=== PATIENT | female | born 1935 | race Caucasian/White ===

== ENCOUNTER 2016-11-16 21:32 | Inpatient (IN) | payer MEDICARE, OTHER ==
[2016-11-16] MEDS ORDERED: fentaNYL CITRATE INJ 50 MCG/ML AMP IV ONE (21:48)
--- NOTE | 2016-11-16 21:49 | ED.PDOC ---
History of Present Illness - General Chief Complaint: Trauma Stated Complaint: left hip pain Time Seen by Provider: 11/16/16 21:42 Source: patient Exam Limitations: no limitations - History of Present Illness Initial Comments: Fatemeh Solis 80 y/o female with hbp stated while she was placing her stuff out of her backpack she lost her balance and and fell on her left side then unable to get up but crawled and called up ems denies dizziness,head or neck injuries or chest pains.She stated that her left hip was hurting after the incident. Occurred: just prior to arrival Severity: severe Injuries/Pain Location: pelvis Reason for Fall: lost balance Loss of Consciousness: prolonged (minutes) Improving Factors: rest Worsening Factors: movement Associated Symptoms (Fall): denies symptoms Allergies/Adverse Reactions: Allergies NO KNOWN ALLERGY Allergy (Verified 01/17/16 19:30) Home Medications: Ambulatory Orders Atenolol [Tenormin] 100 mg PO DAILY 07/19/14 Simvastatin 20 mg PO BEDTIME 07/19/14 Omeprazole 40 mg PO DAILY 04/30/15 Oxybutynin 5 mg PO BID 04/30/15 Vitamin D 5,000 iu PO DAILY 04/30/15 Acetaminophen [Tylenol] 1,000 mg PO Q6H PRN #0 tab 05/08/15 Aspirin [Baby Aspirin] 81 mg PO DAILY 01/17/16 Citalopram Hydrobromide 10 mg PO BEDTIME 01/17/16 Melatonin 5 mg PO BEDTIME 01/17/16 Oxybutynin Chloride 5 mg PO DAILY 01/17/16 Potassium Gluconate 595 mg PO DAILY 01/17/16 amLODIPine BESYLATE [Norvasc] 5 mg PO BEDTIME 01/17/16 Bifidobacterium Infantis [Align] 4 mg PO DAILY #30 cap 01/18/16 Ondansetron [Zofran Odt] 4 mg PO Q6H PRN #12 tab 01/18/16 Potassium Chloride [K-Tab] 10 meq PO QAM #30 tab 01/18/16 levoFLOXacin [Levaquin] 500 mg PO QAM #8 tab 01/18/16 Review of Systems - Review of Systems Constitutional: States: no symptoms reported EENTM: States: no symptoms reported Respiratory: States: no symptoms reported Cardiology: States: no symptoms reported Gastrointestinal/Abdominal: States: no symptoms reported Genitourinary: States: no symptoms reported Musculoskeletal: States: joint pain - left hip Skin: States: no symptoms reported Neurological: States: no symptoms reported Endocrine: States: no symptoms reported Hematologic/Lymphatic: States: no symptoms reported Past Medical History (General) - Patient Medical History Hx Seizures: No Hx Stroke: No Hx Dementia: No Hx Asthma: No Hx of COPD: No Hx Cardiac Disorders: Yes Hx Congestive Heart Failure: No Hx Pacemaker: No Hx Hypertension: Yes Hx Thyroid Disease: No Hx Diabetes: No Hx Gastroesophageal Reflux: Yes Hx Renal Disease: No Hx Cancer: No Hx of HIV: No Hx Hepatitis C: No Hx MRSA: Yes - 2015 MRSA Surveillance MRSA Source:: nose Surgical History: appendectomy, cholecystectomy, tonsillectomy, other - knee, right hip - Vaccination History Hx Tetanus, Diphtheria Vaccination: No Hx Influenza Vaccination: Yes Hx Pneumococcal Vaccination: Yes - Social History Hx Tobacco Use: No Hx Chewing Tobacco Use: No Hx Alcohol Use: No Hx Substance Use: No Hx Substance Use Treatment: No Hx Depression: No Hx Physical Abuse: No Hx Emotional Abuse: No Hx Suspected Abuse: No - Activities of Daily Living Patient Lives Alone: No - Grooming Ability: Independent Eating (Feeding) Ability: Independent Toileting Ability: Independent - Female History Patient : No Physical Exam - Physical Exam General Appearance: Alert, No apparent distress, Other - in pain Head Injury: no evidence of injury Eye Exam: bilateral normal ENT Exam: hearing grossly normal, no evidence of ENT injury, no dental injury Peripheral Pulses: radial,right: 2+, radial,left: 2+, dorsalis pedis,right: 2+, dorsalis pedis,left: 2+ Cardiovascular/Respiratory: regular rate, rhythm, no M/R/G, normal peripheral pulses, no JVD, normal breath sounds Gastrointestinal/Abdominal: normal bowel sounds, non tender, soft, no organomegaly Extremity Exam: pelvis stable, bony-point tenderness - left hip, pain with movement - left hip Neurologic: no motor/sensory deficits, alert, oriented x 3 Skin Exam: normal color, warm/dry - Anny Coma Score Best Eye Response (Anny): (4) open spontaneously Best Verbal Response (Howard): (5) oriented Best Motor Response (Anny): (6) obeys commands Howard Total: 15 Progress - Results/Orders Results/Orders: 11/16/16 21:47 Sodium Chloride 0.9% 1000ML [Ns 1000 ml] 1,000 ml IVS .QD Laboratory Results WBC 6.8 K/mm3 (4.8-10.8) 11/16/16 21: RBC 4.16 M/mm3 (4.20-5.40) L 11/16/16 21: Hgb 11.8 gm/dL (12.0-16.0) L 11/16/16: Hct 35.2 % (36.0-47.0) L 11/16/16: MCV 84.6 fl (81.0-99.0) 11/16/16: MCH 28.3 pg (27.0-31.0) 11/16/16: MCHC 33.5 g/dL (33.0-37.0) 11/16/16: RDW 13.1 % (11.5-14.5) 11/16/16: Plt Count 329 K/mm3 (130-400) 11/16/16: MPV 7.4 fl (7.40-10.4) 11/16/16 21: Absolute Neuts (auto) 4.30 K/uL (1.8-6.8) 11/16/16: Absolute Lymphs (auto) 1.70 K/uL (1.0-3.4) 11/16/16: Absolute Monos (auto) 0.60 K/uL (0.2-0.8) 11/16/16: Absolute Eos (auto) 0.10 K/uL (0.0-0.4) 11/16/16: Absolute Basos (auto) 0.00 K/uL (0.0-0.1) 11/16/16 21: Neutrophils % 63.9 % (42.0-78.0) 11/16/16 21: Lymphocytes % 25.1 % (20.0-50.0) 11/16/16 21: Monocytes % 8.3 % (2.0-9.0) 11/16/16 21: Eosinophils % 2.1 % (1.0-5.0) 11/16/16: Basophils % 0.6 % (0.0-2.0) 11/16/16 21:25 Sodium 133 mmol/L (135-145) L 11/16/16 21:25 Potassium 4.1 mmol/L (3.6-5.0) 11/16/16 21:25 Chloride 100 mmol/L (101-111) L 11/16/16 21:25 Carbon Dioxide 26 mmol/L (21-31) 11/16/16 21:25 Anion Gap 11.1 (12-18) L 11/16/16 21:25 BUN 24 mg/dL (7-18) H 11/16/16 21:25 Creatinine 0.84 mg/dL (0.6-1.3) 11/16/16 21:25 BUN/Creatinine Ratio 28.6 (10-20) H 11/16/16 21:25 Random Glucose 107 mg/dL (70-105) H 11/16/16 21:25 Serum Osmolality 270.9 mOsm/L (275-295) L 11/16/16 21:25 Calcium 8.9 mg/dL (8.4-10.2) 11/16/16 21:25 Total Bilirubin 0.3 mg/dL (0.2-1.0) 11/16/16 21:25 AST 20 IU/L (10-42) 11/16/16 21:25 ALT 16 IU/L (10-60) 11/16/16 21:25 Alkaline Phosphatase 58 IU/L (42-121) 11/16/16 21:25 Serum Total Protein 7.3 gm/dL (6.4-8.2) 11/16/16 21:25 Albumin 4.0 g/dl (3.2-5.5) 11/16/16 21:25 Globulin 3.3 gm/dL (2.3-3.5) 11/16/16 21:25 Albumin/Globulin Ratio 1.2 (1.1-1.9) 11/16/16 21:25 Vital Signs - 8 hr 11/16/16 11/16/16 11/16/16 21:35 22:32 22:33 Temperature 99.1 F Pulse Rate [ 63 72 monitor] Respiratory 18 16 Rate Blood Pressure 191/73 188/76 [Right Arm] O2 Sat by Pulse 96 93 L 93 L Oximetry 11/16/16 23:00 Temperature Pulse Rate [ 70 monitor] Respiratory 14 Rate Blood Pressure 179/87 [Right Arm] O2 Sat by Pulse 96 Oximetry 0042H D/W Dr. Bradley orthopedist for admit accepted . - EKG/XRAY/CT EKG: Sinus, no ST T wave changes XRAY: fracture femoral neck closed Departure - Departure Clinical Impression: Fall at home Qualifiers: Encounter type: initial encounter Qualified Code(s): W19.XXXA - Unspecified fall, initial encounter Fracture, femur, neck Qualifiers: Encounter type: initial encounter Fracture type: closed Laterality: left Qualified Code(s): S72.002A - Fracture of unspecified part of neck of left femur , initial encounter for closed fracture Hypertension Qualifiers: Hypertension type: essential hypertension Qualified Code(s): I10 - Essential ( primary) hypertension Time of Disposition: 00:33 - D/W Chelsy Carver ANP-Hospitalist for admit Disposition: Discharge to Home or Self Care Condition: Fair Referrals: True Alvarez III, MD [Primary Care Provider] - 1-2 Weeks Home Medications: Ambulatory Orders Atenolol [Tenormin] 100 mg PO DAILY 07/19/14 Simvastatin 20 mg PO BEDTIME 07/19/14 Omeprazole 40 mg PO DAILY 04/30/15 Oxybutynin 5 mg PO BID 04/30/15 Vitamin D 5,000 iu PO DAILY 04/30/15 Acetaminophen [Tylenol] 1,000 mg PO Q6H PRN #0 tab 05/08/15 Aspirin [Baby Aspirin] 81 mg PO DAILY 01/17/16 Citalopram Hydrobromide 10 mg PO BEDTIME 01/17/16 Melatonin 5 mg PO BEDTIME 01/17/16 Oxybutynin Chloride 5 mg PO DAILY 01/17/16 Potassium Gluconate 595 mg PO DAILY 01/17/16 amLODIPine BESYLATE [Norvasc] 5 mg PO BEDTIME 01/17/16 Bifidobacterium Infantis [Align] 4 mg PO DAILY #30 cap 01/18/16 Ondansetron [Zofran Odt] 4 mg PO Q6H PRN #12 tab 01/18/16 Potassium Chloride [K-Tab] 10 meq PO QAM #30 tab 01/18/16 levoFLOXacin [Levaquin] 500 mg PO QAM #8 tab 01/18/16
[2016-11-16] MEDS: SODIUM CHLORIDE 0.9% 1000ML 1,000 ML IVS PRN (21:51)
--- NOTE | 2016-11-16 22:07 | RAD ---
PROCEDURE: XR CHEST 1 VIEW HISTORY: fall COMPARISON: 03/18/2016 TECHNIQUE: Single projection of the chest was done. FINDINGS: There is no gross evidence of acute thoracic bony trauma . There are no discrete airspace infiltrates, pneumothoraces or pleural effusions. The pulmonary vascularity is normal. The cardiomediastinal silhouette is unremarkable for patient's age and sex. IMPRESSION: There is no acute findings on the current study Electronically signed by: Adelso Steward MD 11/16/2016 10:06 PM CDT
--- NOTE | 2016-11-16 22:19 | RAD ---
PROCEDURE: Hip,Left 2 Views Clinical History: fall Indication: Status post fall Comparison: CT of the pelvis done on the same day. Technique: 2.0 views of the left hip. Findings: There is truncation of the left femoral neck suspicious for subcapital fracture of the proximal left femur. The left femoral head is place in the left acetabulum Impression: There is truncation of the left femoral neck suspicious for subcapital fracture of the proximal left femur. Location of Interpretation: Teleradiology Electronically signed by: Adelso Steward MD 11/16/2016 10:19 PM CDT
--- NOTE | 2016-11-16 22:21 | RAD ---
PROCEDURE: Pelvis Clinical History: fell Indication: Same as above Comparison: X-ray of the left hip done on the same day . Technique: Single frontal view of the pelvis Findings: There is truncation of the left femoral neck suspicious for subcapital fracture of the proximal left femur. The left femoral head is well in place in the left acetabulum. There is intact right hip arthroplasty. Degenerative changes are seen in the lumbar spine. Impression: There is truncation of the left femoral neck suspicious for subcapital fracture of the proximal left femur. The left femoral head is well in place in the left acetabulum. Intact left hip arthroplasty. Electronically signed by: Adelso Steward MD 11/16/2016 10:21 PM CDT
[2016-11-17] MEDS ORDERED: fentaNYL CITRATE INJ 50 MCG/ML AMP IV ONE ×2 (00:04→01:34)
[2016-11-17] MEDS ORDERED: fentaNYL CITRATE INJ 50 MCG/ML AMP ONE ×2 (00:06→09:06)
--- NOTE | 2016-11-17 01:20 | HP ---
SUPERVISING PHYSICIAN: Gera Ruelas M.D. CHIEF COMPLAINT: Left hip pain. HISTORY OF PRESENT ILLNESS: This is an 80 year-old female patient who was at her home today and she was getting stuff out of her suitcase. She lost her balance and fell on her left side. She had just gotten home from the hospital. Her had been admitted to [facility] on the night she came to the Emergency Room for Swing Bed from [facility]. In the Emergency Room, she was found to have her x-ray per radiologic interpretation revealed a truncation of the left femoral neck that was suspicious for a subcapital fracture of the proximal left femur. Dr. Sinclair was called from the Emergency Room and he agreed to do surgery. I was called for an admission to the hospital. PAST MEDICAL HISTORY: 1. Hiatal hernia. 2. Hypertension. 3. Osteoarthritis. 4. History of hypokalemia. PAST SURGICAL HISTORY: 1. Appendectomy. 2. Dilatation and curettage. 3. Cholecystectomy. 4. Bilateral knee replacements. 5. Right hip replacement. CURRENT MEDICATIONS: Per the EMR and awaiting verification. ALLERGIES: NO KNOWN DRUG ALLERGIES. SOCIAL HISTORY: She is . She is retired. She denies any tobacco, ETOH or illicit drug use. REVIEW OF SYSTEMS: Difficult to obtain due to the patient's status. PHYSICAL EXAMINATION: VITAL SIGNS: She is afebrile, heart rate 92, blood pressure 169/70, respiratory rate 20, O2 sat 95%. GENERAL: This is an 80 year-old female patient. She is lying in her hospital bed awaiting going to surgery. HEENT: Normocephalic and atraumatic. Pupils are equal and reactive. Oropharynx is clear. NECK: Supple without mass. CHEST: Lungs are clear to auscultation bilaterally. CARDIOVASCULAR: Regular rate and rhythm. ABDOMEN: Soft, nondistended, non-tender. Bowel sounds are positive. EXTREMITIES: Her left hip area is tender to palpation but otherwise there is no cyanosis, clubbing or edema. Bilateral pedal pulses are palpable at +2. NEUROLOGIC: She is somewhat sedated. She does open her eyes. She answers some simple yes or no questions appropriately. LABORATORY: WBCs are 6.8, hemoglobin 11.8, hematocrit 35.2. Sodium 130, potassium 4.1, chloride 100, carbon dioxide 26, BUN 24, creatinine 0.84, glucose 107, serum osmolality 270.9. Urine is basically within normal limits. All other labs and films have been reviewed via the EMR. ASSESSMENT: 1. Left hip fracture presently awaiting surgical repair per Dr. Sinclair, orthopedic surgeon. 2. Hypertension. 3. Osteoarthritis. PLAN: We will admit the patient to the hospital. I will place her NPO so she can have surgical intervention by Dr. Nitish Sinclair, orthopedic surgeon, later this morning. We will follow her postoperatively. Will defer any orthopedic issues per Dr. Sinclair. We will monitor the patient closely and followup as needed. Dr. Ruelas is the collaborating physician available for consultation. #[id number] [facility]
[2016-11-17] MEDS ORDERED: SODIUM CHLORIDE 0.9% (FLUSH) 10 ML SYG IV PRN (03:00)
[2016-11-17] MEDS: fentaNYL CITRATE INJ 50 MCG/ML AMP IV PRN ×4 (03:29→10:49)
[2016-11-17] MEDS: PANTOPRAZOLE SODIUM IV 40 MG VIAL IV SCH (03:37)
[2016-11-17] MEDS: IV SET AND CAP CHANGE INJ INJ SCH (03:41)
[2016-11-17] MEDS: ONDANSETRON INJ 4 MG/2 ML VIAL IV PRN ×2 (06:09→20:01)
[2016-11-17] MEDS: SODIUM CHLORIDE 0.9% 1000ML 1,000 ML IVS PRN ×2 (06:31→20:02)
--- NOTE | 2016-11-17 08:42 | CONS ---
DATE OF CONSULTATION: 11/17/16 CHIEF COMPLAINT: Left hip pain. HISTORY OF PRESENT ILLNESS: Ms. Solis is an 80-year-old female with a history of a fall that occurred on the day of presentation. She had been trying to pick something up and actually fell. She had the acute onset of pain at that time. She has pain only in the hip today without radiation or neurologic symptoms. She denies any other injury associated with this. X-rays taken in the Emergency Room demonstrated a fracture of the femoral neck on the left. PAST SURGICAL HISTORY: 1. Right side hip replacement for hip fracture. MEDICATIONS: 1. Tylenol. 2. Aspirin. 3. Citalopram. 4. Melatonin. 5. Oxybutynin. 6. Potassium. 7. Amlodipine. 8. Ondansetron. 9. Levofloxacin. 10. Atenolol. 11. Simvastatin. 12. Omeprazole. ALLERGIES: NO KNOWN DRUG ALLERGIES. SOCIAL HISTORY: The patient does not drink, smoke or use any illicit drugs. FAMILY HISTORY: None pertinent to today's complaint. REVIEW OF SYSTEMS: Negative except as indicated in the History of Present Illness. PHYSICAL EXAMINATION: VITAL SIGNS: Temperature 99. Pulse 63. Respirations 18. Blood pressure 190/ 73. O2 saturation 96% on room air. MENTAL STATUS: The patient is awake, alert, and is able to give a good history and participate in the physical. The patient is oriented to person, place and time. SKIN: Normal tone and turgor. HEENT: Normocephalic, atraumatic. Pupils equal, round and reactive. Mucosal membranes are moist. NECK: Normal range of motion. No thyromegaly, no lymphadenopathy. CHEST: Normal respiratory excursion. CARDIAC: Regular rate and rhythm. No murmurs, rubs or gallops. MUSCULOSKELETAL: Bilateral upper extremities show full active range of motion without pain. She has intact sensation. They are warm and well perfused. She has no deformity and no crepitus. The right lower extremity shows good range of motion without significant pain. Sensation is intact. It is warm and well perfused. There is no deformity. I am unable to move the left lower extremity secondary to discomfort. However, sensation is intact. It is warm and well perfused. She does have 5/5 strength in plantar and dorsiflexion of the ankle. IMAGING: X-rays show a femoral neck fracture. ASSESSMENT: 1. Femoral neck fracture. PLAN: The plan at this point is for hemiarthroplasty. We have discussed the risks, benefits, and alternatives to that and the patient has given informed consent for that. #[id number] [facility]
[2016-11-17] MEDS ORDERED: SODIUM CHLORIDE 0.9% 250ML 250 ML ONE (08:49)
[2016-11-17] MEDS ORDERED: VANCOMYCIN HCL INJ 1,000 MG VIAL IVPB ONE ×3 (08:49→12:35)
[2016-11-17] MEDS ORDERED: VANCOMYCIN HCL INJ 1,000 MG in SODIUM CHLORIDE 0.9% 250ML 250 ML IVPB ONE (08:50)
[2016-11-17] MEDS ORDERED: ceFAZolin SODIUM 1 GM in SODIUM CHL 0.9% 50ML MIN-BAG+ 50 ML IVPB ONE (08:50)
[2016-11-17] MEDS ORDERED: TRANEXAMIC ACID 1,000 MG/10 ML VIAL ONE ×2 (08:59→09:00)
[2016-11-17] MEDS ORDERED: SODIUM CHL 0.9% 100ML MINI-BAG 100 ML IVPB ONE (09:00)
[2016-11-17] MEDS ORDERED: LACTATED RINGERS 1,000 ML ONE ×3 (09:06→15:29)
[2016-11-17] MEDS ORDERED: ROCURONIUM BROMIDE 10 MG/ML VIAL ONE (09:06)
[2016-11-17] MEDS ORDERED: TRANEXAMIC ACID 1,000 MG/10 ML VIAL IV ONE (10:15)
[2016-11-17] MEDS ORDERED: ceFAZolin SODIUM 1 GM VIAL ONE ×5 (10:28→22:03)
[2016-11-17] MEDS ORDERED: SODIUM CHLORIDE 0.9% 100ML 0 ML IVPB ONE (10:32)
[2016-11-17] MEDS ORDERED: ELECTROLYTE-A 1,000 ML IVS ONE (10:45)
[2016-11-17] MEDS: TRANEXAMIC ACID INJ 1,000 MG in SODIUM CHLORIDE 0.9% 100ML 100 ML IVPB ONE ×2 (11:30→12:21)
[2016-11-17] MEDS ORDERED: NEOSTIGMINE METHYLSULFATE 1 MG/ML ML IV ONE (12:00)
[2016-11-17] MEDS ORDERED: PROPOFOL 200 MG/20 ML VIAL IV ONE (12:00)
[2016-11-17] MEDS ORDERED: LIDOCAINE 1% 10 ML VIAL INJ ONE (12:00)
[2016-11-17] MEDS ORDERED: ATROPINE SULFATE 0.4 MG/ML 1ML VIAL ONE (12:00)
[2016-11-17] MEDS ORDERED: BUPIVACAINE 0.25% W/EPI 50 ML VIAL INJ ONE (13:01)
[2016-11-17] MEDS ORDERED: ONDANSETRON INJ 4 MG/2 ML VIAL ONE (13:57)
[2016-11-17] MEDS ORDERED: NALOXONE HCL INJ 0.4 MG/ML VIAL ONE (14:08)
--- NOTE | 2016-11-17 14:15 | RAD ---
EXAM DESCRIPTION: Pelvis CLINICAL HISTORY: 80 years Female, POST OP COMPARISON: November 16, 2016 FINDINGS: There has been interval unipolar left hip arthroplasty without hardware or other surgical complication. Previous right hip arthroplasty is unchanged from the prior exam and also without apparent complication. There are degenerative changes in the lumbar spine at several levels. The exam is otherwise unremarkable. IMPRESSION: Interval unipolar left hip arthroplasty without apparent complication. Electronically signed by: Paulo Garza MD 11/17/2016 2:15 PM CDT
--- NOTE | 2016-11-17 14:15 | RAD ---
EXAM DESCRIPTION: Hip,Left 2 Views CLINICAL HISTORY: 80 years Female, POST OP COMPARISON: Left hip radiograph obtained yesterday FINDINGS: There has been interval unipolar left hip arthroplasty without hardware complication. Gas in the soft tissues lateral to the left hip is likely related to recent surgery. There is no periprosthetic fracture. IMPRESSION: Uncomplicated postoperative changes in the left hip. Electronically signed by: Paulo Garza MD 11/17/2016 2:16 PM CDT
[2016-11-17] MEDS ORDERED: FUROSEMIDE INJ 40 MG/4 ML VIAL ONE (14:26)
[2016-11-17] MEDS ORDERED: SODIUM CHLORIDE 0.9% 100ML 100 ML IVPB ONE (16:19)
[2016-11-17] MEDS ORDERED: SODIUM CHL 0.9% 50ML MIN-BAG+ 50 ML IVPB ONE ×2 (16:20→22:02)
[2016-11-17] MEDS ORDERED: VANCOMYCIN PER PHARMACY IVPB SCH (16:30)
[2016-11-17] MEDS: ceFAZolin SODIUM 1 GM in SODIUM CHL 0.9% 50ML MIN-BAG+ 50 ML IVPB SCH (18:50)
[2016-11-17] MEDS ORDERED: HYDROcodone 5MG/APAP 325MG 1 EA TAB PO ONE (19:37)
--- NOTE | 2016-11-17 20:17 | PN ---
DATE: 11/17/16 POSTOPERATIVE CHECK SUBJECTIVE: Ms. Solis is doing pretty well and she is comfortable with regards to her hip right now. OBJECTIVE: She is afebrile. Vital signs are stable. Dressing is clean, dry and intact. ASSESSMENT: 1. Status post hemiarthroplasty for hip fracture. PLAN: The plan at this point is for her to begin weightbearing as tolerated on postoperative day 1. [facility][id number] [facility]
--- NOTE | 2016-11-17 21:45 | OP ---
DATE OF PROCEDURE: 11/17/16 PREOPERATIVE DIAGNOSIS: 1. Left femoral neck fracture. POSTOPERATIVE DIAGNOSIS: 1. Left femoral neck fracture. PROCEDURE: 1. Left hemiarthroplasty. SURGEON: Nitish Sinclair M.D. SUPERVISOR DRYING: Carmelo Rosales CST, SA-C. ANESTHESIA: General anesthesia. COMPLICATIONS: None. FINDINGS: Fracture of the left femoral neck. INDICATION FOR PROCEDURE: Ms. Solis has a history of a fall on the day of presentation. She had the acute onset of pain in the hip. Following the acute onset of pain, she was brought to the Emergency Room where x-rays revealed a fracture of the femoral neck. She denied any other injury associated with this fall. We discussed the risks, benefits, and alternatives to operative therapy. After discussing the risks, benefits, and alternatives to that she gave informed consent for hemiarthroplasty. DESCRIPTION OF PROCEDURE: The patient was brought to the Operating Room and placed in supine position. Anesthesia was induced and the patient was transitioned into the lateral decubitus position. The leg and hemipelvis were sterilely prepped and draped and an incision was made centered on the greater trochanter with extension both proximally and distally. Dissection was carried down to the iliotibial band which was sharply incised along the course of its fibers. A Charnley retractor was placed and the abductor musculature was identified. The anterior one-third of the abductor musculature was elevated off the greater trochanter using electrocautery and the capsule was incised. The femoral head was removed and the primary femoral neck cut was made. The acetabulum was examined and found to be free of any significant defect, therefore attention was focused on the femur. The femoral canal was sequentially broached until an appropriate sized trial prosthesis was placed. A trial femoral head was placed and the hip was reduced. The hip was taken through a full range of motion and demonstrated stability without impingement or pending dislocation and the leg length appeared to be paresthesias. Following trialing, the trial component was removed and the femoral canal was prepared for cementation of the prosthesis. A distal cement restrictor was placed and the final component was cemented into place. The excess cement was removed and the remaining cement was allowed to cure. The final head was impacted and the hip was reduced, taken through a full range of motion, and found to be stable without impingement. The wound was thoroughly irrigated and the abductor musculature was reapproximated to the greater trochanter through drill holes using Ethibond. The repair was augmented with PDS suture and the iliotibial band was subsequently closed. The subcutaneous tissues were closed with a combination of running and interrupted subcuticular stitches, a sterile dressing was placed, and the patient was transitioned into the supine position. The patient was awoken from anesthesia and taken to the Recovery Room in stable condition. PLAN: At this point, the plan is for her to begin weightbearing as tolerated on postoperative day 1. #[id number] [facility]
[2016-11-17] MEDS ORDERED: ENOXAPARIN SODIUM 30 MG/0.3 ML SYG SUBCU ONE (22:02)
[2016-11-18] MEDS: HYDROcodone 5MG/APAP 325MG 1 EA TAB PO PRN ×2 (00:57→07:13)
[2016-11-18] MEDS: ENOXAPARIN SODIUM 30 MG/0.3 ML SYG SUBCU SCH ×2 (02:29→14:42)
[2016-11-18] MEDS: ceFAZolin SODIUM 1 GM in SODIUM CHL 0.9% 50ML MIN-BAG+ 50 ML IVPB SCH ×2 (03:00→12:00)
[2016-11-18] MEDS: SODIUM CHLORIDE 0.9% 1000ML 1,000 ML IVS PRN ×3 (03:45→22:00)
[2016-11-18] MEDS: PANTOPRAZOLE SODIUM IV 40 MG VIAL IV SCH (03:45)
[2016-11-18] MEDS: fentaNYL CITRATE INJ 50 MCG/ML AMP IV PRN (04:27)
[2016-11-18] MEDS ORDERED: SODIUM CHLORIDE 0.9% 250ML 250 ML ONE (08:32)
[2016-11-18] MEDS ORDERED: VANCOMYCIN HCL INJ 1,000 MG VIAL IVPB ONE (08:34)
[2016-11-18] MEDS ORDERED: HYDROcodone 5MG/APAP 325MG 1 EA TAB PO ONE (09:18)
[2016-11-18] MEDS: VANCOMYCIN HCL INJ 750 MG in SODIUM CHLORIDE 0.9% 250ML 250 ML IVPB SCH (09:22)
[2016-11-18] MEDS ORDERED: SODIUM CHL 0.9% 50ML MIN-BAG+ 50 ML IVPB ONE (11:02)
[2016-11-18] MEDS ORDERED: ceFAZolin SODIUM 1 GM VIAL ONE (11:02)
--- NOTE | 2016-11-18 11:28 | PN ---
DATE: 11/18/16 SUBJECTIVE: Ms. Solis is improved since last night. OBJECTIVE: Afebrile. Vital signs stable. Dressing is clean, dry, and intact. ASSESSMENT: Status post hemiarthroplasty for hip fracture. PLAN: At this point, she is going to begin physical therapy for weight-bearing as tolerated. #[id number] [facility]
[2016-11-18] MEDS: ONDANSETRON INJ 4 MG/2 ML VIAL IV PRN (12:11)
[2016-11-18] MEDS: HYDROcodone 10MG/APAP 325MG 1 EA TAB PO PRN ×2 (13:48→20:19)
[2016-11-18] MEDS ORDERED: IRBESARTAN HYDROCHLOROTHIAZIDE PO SCH (14:00)
[2016-11-18] MEDS ORDERED: [UNRECOGNIZED DRUG - OTHER] PO SCH (14:00)
[2016-11-18] MEDS: CITALOPRAM HBR 20 MG TAB PO SCH (14:42)
--- NOTE | 2016-11-18 16:35 | PN ---
DATE: 11/18/16 SUPERVISING PHYSICIAN: Gera Ruelas M.D. SUBJECTIVE: The patient is sitting up in her hospital bed. She is in no acute distress. She denies any chest pain, shortness of breath, nausea, vomiting or abdominal pain. Her home medications have been changed several times as there has been some question as to her correct home medications. Her son brought them in today and they have been corrected. OBJECTIVE: She is afebrile, pulse rate 74, blood pressure 125/68, respiratory rate 18, O2 sat is 92% on room air. RESPIRATORY: Clear to auscultation bilaterally. HEART: Regular rate and rhythm. ABDOMEN: Soft, nondistended, non- tender. Bowel sounds are positive. EXTREMITIES: No cyanosis, clubbing or edema. Bilateral pedal pulses are palpable +2. She does have a dressing to her left hip that is dry and intact. NEUROLOGIC: She is awake, alert and oriented times three. LABORATORY: WBC 9.4, hemoglobin 10, hematocrit 29.9. Sodium 133, glucose 110, serum osmolality 268.2, calcium 7.8. All other labs and films have been reviewed via the EMR. ASSESSMENT: 1. Left hip fracture status post left hip surgery postoperative day 1, repair per orthopedic surgeon after traumatic fall. 2. Hypertension. 3. Osteoarthritis. PLAN: Her home medications have finally been clarified and we will make sure all of those are entered correctly and restarted. We will continue our present supportive care. Dr. Sinclair is following the patient surgically. She has done her strengthening and conditioning with Physical Therapy. Most likely she will be discharged to Swing Bed for strengthening and conditioning. The plan for that is tomorrow or the next day. Otherwise we will continue to monitor the patient and followup as needed. Dr. Ruelas is the collaborating physician and available for consultation. #[id number] [facility]
[2016-11-18] MEDS ORDERED: NON-FORMULARY MEDICATION 1 EA MIS (Melatonin [Melatonin] 5 MG) PO SCH (21:00)
[2016-11-18] MEDS: CARVEDILOL 12.5 MG TAB PO SCH (21:55)
[2016-11-18] MEDS: OXYBUTYNIN CL 5 MG TAB PO SCH (21:55)
[2016-11-18] MEDS: MELATONIN 3 MG TAB PO SCH (21:55)
[2016-11-18] MEDS: ATORVASTATIN 10 MG TAB PO SCH (21:55)
[2016-11-19] MEDS: ENOXAPARIN SODIUM 30 MG/0.3 ML SYG SUBCU SCH ×2 (01:59→14:33)
[2016-11-19] MEDS: PANTOPRAZOLE SODIUM IV 40 MG VIAL IV SCH (03:39)
[2016-11-19] MEDS: SODIUM CHLORIDE 0.9% 1000ML 1,000 ML IVS PRN (05:48)
[2016-11-19] MEDS ORDERED: VANCOMYCIN HCL INJ 1,000 MG VIAL IVPB ONE (07:21)
[2016-11-19] MEDS ORDERED: SODIUM CHLORIDE 0.9% 250ML 250 ML ONE (07:21)
[2016-11-19] MEDS: HYDROcodone 10MG/APAP 325MG 1 EA TAB PO PRN ×2 (08:06→20:10)
[2016-11-19] MEDS: IRBESARTAN 150 MG PO SCH (09:52)
[2016-11-19] MEDS: VANCOMYCIN HCL INJ 750 MG in SODIUM CHLORIDE 0.9% 250ML 250 ML IVPB SCH (09:53)
[2016-11-19] MEDS: CITALOPRAM HBR 20 MG TAB PO SCH (09:55)
[2016-11-19] MEDS: CARVEDILOL 12.5 MG TAB PO SCH ×2 (09:55→21:10)
[2016-11-19] MEDS ORDERED: FUROSEMIDE INJ 20 MG/2 ML VIAL IV ONE (14:06)
[2016-11-19] MEDS ORDERED: MAGNESIUM HYDROXIDE 30 ML UD PO ONE (15:00)
--- NOTE | 2016-11-19 16:39 | PN ---
DATE: 11/19/16 SUBJECTIVE: The patient is resting well but awakens fully and is pleasant. No shortness of breath, nausea or vomiting or chest pain present. Her appetite is still quite poor. Minimal discomfort noted in her left hip now day 2 after left hemiarthroplasty for a left femoral neck fracture. OBJECTIVE: Significantly diminished urine output is evident. She has been receiving 125 mL per hour of IV fluids plus some oral fluids but has had only minimal urine output. This will be observed more closely as the IV fluids are reduced in volume and a loop diuretic is tried to see if it will assist with the urine flow. LUNGS: Clear. HEART: Tones regular. ABDOMEN: Soft. No drainage of blood or secretions into the left hip dressings evident. ASSESSMENT: 1. Postoperative day number 2 left femoral neck fracture requiring left hemiarthroplastic repair performed by Dr. Sinclair after a traumatic fall. 2. Hypertension. 3. Osteoarthritis. 4. Oliguria. PLAN: Try a single dose of Furosemide IV. Decrease fluid intake and observe. Continue with diet. Give lip moisturizers because of the dry mouth. Cautioned regarding the Hibiclens mouth wash that she is on regarding darkening of the teeth and for possible allergic reaction contributing to some of her symptoms in her mouth. Increase caloric intake as possible and observe closely. Reevaluate in the morning with laboratory studies. #[id number] [facility]
[2016-11-19] MEDS ORDERED: MAGNESIUM HYDROXIDE 30 ML UD ONE (16:47)
[2016-11-19] MEDS ORDERED: CHLORHEXIDINE GLUCONATE 4 % 15 ML UD TOP SCH (17:00)
[2016-11-19] MEDS ORDERED: CHLORHEXIDINE MOUTH RINSE 473 ML BTTL SWSP PRN (18:15)
[2016-11-19] MEDS ORDERED: PANTOPRAZOLE SODIUM TAB 40 MG PO ONE (20:08)
[2016-11-19] MEDS: MELATONIN 3 MG TAB PO SCH (21:10)
[2016-11-19] MEDS: OXYBUTYNIN CL 5 MG TAB PO SCH (21:10)
[2016-11-19] MEDS: ATORVASTATIN 10 MG TAB PO SCH (21:10)
[2016-11-20] MEDS: ENOXAPARIN SODIUM 30 MG/0.3 ML SYG SUBCU SCH ×2 (01:52→13:29)
[2016-11-20] MEDS: PANTOPRAZOLE SODIUM TAB 40 MG PO SCH (06:06)
[2016-11-20] MEDS: IV SET AND CAP CHANGE INJ INJ SCH (06:11)
[2016-11-20] MEDS: SODIUM CHLORIDE 0.9% 1000ML 1,000 ML IVS PRN (07:27)
[2016-11-20] MEDS ORDERED: SODIUM CHLORIDE 0.9% 250ML 250 ML ONE (08:19)
[2016-11-20] MEDS ORDERED: VANCOMYCIN HCL INJ 1,000 MG VIAL IVPB ONE (08:20)
[2016-11-20] MEDS: HYDROcodone 10MG/APAP 325MG 1 EA TAB PO PRN ×2 (08:59→20:54)
[2016-11-20] MEDS: CITALOPRAM HBR 20 MG TAB PO SCH (08:59)
[2016-11-20] MEDS: CARVEDILOL 12.5 MG TAB PO SCH ×2 (08:59→20:54)
[2016-11-20] MEDS: IRBESARTAN 150 MG PO SCH (08:59)
[2016-11-20] MEDS ORDERED: MAGNESIUM HYDROXIDE 30 ML UD ONE (09:02)
[2016-11-20] MEDS: VANCOMYCIN HCL INJ 750 MG in SODIUM CHLORIDE 0.9% 250ML 250 ML IVPB SCH (09:49)
[2016-11-20] MEDS ORDERED: MAGNESIUM HYDROXIDE 30 ML UD PO PRN (10:06)
[2016-11-20] MEDS ORDERED: SOD CHL 3% *HYPERTONIC* 500ML 300 ML IVS ONE (10:09)
[2016-11-20] MEDS: FUROSEMIDE INJ 20 MG/2 ML VIAL IV SCH ×2 (12:15→17:45)
--- NOTE | 2016-11-20 14:08 | PN ---
DATE: 11/20/16 SUBJECTIVE: Ms. Solis is resting in bed. She does feel a little tired when she gets up to go to the potty chair or to the chair for eating. Ambulation also results in some fairly significant fatigue. Coloration somewhat pale. OBJECTIVE: Afebrile, blood pressure 118/67, pulse 69, pulse oximetry 91% with 2 liters nasal cannula. Her intake and output shows a positive intake but she has had almost 1200 mL of urine out yesterday and last night. Her IVs have been decreased. ABDOMEN: Soft. No bleeding at the incision site of the right hip. LABORATORY: White count is 8,100, hemoglobin preoperatively was 11.8 and has now dropped down to 8.9, recheck in the morning. Chemistries are significant in that the sodium is down to 130 and osmolality is down to 263. Continued fluid restrictions and a course of hypertonic saline will be attempted to help reverse this trend. BUN is 20, creatinine is down to 0.56. Urinalysis is clean. MRSA showed no growth. No x-rays. ASSESSMENT: 1. Postoperative day number 3 left femoral neck fracture requiring a left hemiarthroplastic repair performed by Dr. Sinclair, orthopedist, after traumatic fall. 2. Anemia postoperative with close followup necessary to assist in stabilization for adequate rehabilitation. 3. Hypertension. 4. History of osteoarthritis. 5. Oliguria. Continue to observe and support. 6. Hyponatremia showing some progressive worsening with specific treatment initiated. PLAN: The patient will be continued on modified fluid restrictions. IVs will be decreased to TKO with normal saline and 300 mL of 3% saline to be given slowly over the next 8 hours. Recheck in the morning. The anemia will also be reexamined in the morning to make sure that her hemoglobin is adequate for continued rehabilitation success. #[id number] [facility]
[2016-11-20] MEDS: ATORVASTATIN 10 MG TAB PO SCH (20:54)
[2016-11-20] MEDS: OXYBUTYNIN CL 5 MG TAB PO SCH (20:54)
[2016-11-20] MEDS: MELATONIN 3 MG TAB PO SCH (20:54)
[2016-11-21] MEDS: ENOXAPARIN SODIUM 30 MG/0.3 ML SYG SUBCU SCH ×2 (02:45→14:13)
[2016-11-21] MEDS: PANTOPRAZOLE SODIUM TAB 40 MG PO SCH (06:12)
[2016-11-21] MEDS ORDERED: SODIUM CHLORIDE 0.9% 250ML 250 ML ONE (08:19)
[2016-11-21] MEDS ORDERED: VANCOMYCIN HCL INJ 1,000 MG VIAL IVPB ONE (08:19)
[2016-11-21] MEDS: FUROSEMIDE INJ 20 MG/2 ML VIAL IV SCH (08:48)
[2016-11-21] MEDS: IRBESARTAN 150 MG PO SCH (08:48)
[2016-11-21] MEDS: CITALOPRAM HBR 20 MG TAB PO SCH (08:48)
[2016-11-21] MEDS: CARVEDILOL 12.5 MG TAB PO SCH ×2 (08:49→21:02)
[2016-11-21] MEDS: VANCOMYCIN HCL INJ 750 MG in SODIUM CHLORIDE 0.9% 250ML 250 ML IVPB SCH (08:49)
[2016-11-21] MEDS: HYDROcodone 10MG/APAP 325MG 1 EA TAB PO PRN ×2 (10:20→15:37)
--- NOTE | 2016-11-21 17:38 | PN ---
DATE: 11/21/16 SUBJECTIVE: Ms. Solis is sitting up and has participated in her rehabilitation earlier today. The pain seems to be of a more controlled variety. She is alert. No shortness of breath evident. No significant drainage from the site of the incision. She has not been eating or drinking well and is encouraged to increase her nutritional and fluid intakes accordingly. OBJECTIVE: Afebrile, pulse 60, blood pressure 132/73, pulse oximetry 91% on room air. The patient is awake and alert. LUNGS: Clear. HEART: Tones regular. ABDOMEN: Soft. Doing fairly well though requiring some assistance because of the recent hip surgery on the left. LABORATORY: Hemoglobin has gone down from surgery 11.8 down to 8.6 this morning. This will be repeated tomorrow morning to see if she will require a couple of units of red blood cells in order to allow her to be more clinically stable to participate and improve with her ongoing rehabilitation process. Her sodium is up to 131, potassium 4, BUN 23, creatinine 0.52, calcium 8.2. MRSA is negative. ASSESSMENT: 1. Postoperative day number 4 left femoral neck fracture requiring left hemiarthroplasty repair performed by Dr. Sinclair, orthopedist, after traumatic fall. 2. Anemia postoperatively noted with followup suggested and repeat in the morning to see if it will interfere with her ongoing rehabilitation course. 3. Hypertension. 4. History of osteoarthritis. 5. Oliguria, continue to encourage adequate intake and fluids. 6. Hyponatremia showing slight improvement. PLAN: Recheck hemoglobin and electrolytes in the morning. If stable, will consider Swing Bed to continue rehabilitation. If hemoglobin is lower, may benefit by 2 units of packed red blood cells to allow her to hemodynamically tolerate the increased rehabilitation process until she is able to safely return home. #[id number] [facility]
[2016-11-21] MEDS: OXYBUTYNIN CL 5 MG TAB PO SCH (21:02)
[2016-11-21] MEDS: MELATONIN 3 MG TAB PO SCH (21:02)
[2016-11-21] MEDS: ATORVASTATIN 10 MG TAB PO SCH (21:02)
[2016-11-21] MEDS: SODIUM CHLORIDE 0.9% (FLUSH) 10 ML SYG IV SCH (21:03)
[2016-11-22] MEDS: ENOXAPARIN SODIUM 30 MG/0.3 ML SYG SUBCU SCH ×2 (01:46→13:49)
[2016-11-22] MEDS: HYDROcodone 10MG/APAP 325MG 1 EA TAB PO PRN ×3 (01:58→15:05)
[2016-11-22] MEDS: PANTOPRAZOLE SODIUM TAB 40 MG PO SCH (06:09)
[2016-11-22] MEDS ORDERED: SODIUM CHLORIDE 0.9% 250ML 250 ML ONE (07:32)
[2016-11-22] MEDS ORDERED: VANCOMYCIN HCL INJ 1,000 MG VIAL IVPB ONE (07:33)
[2016-11-22] MEDS: CARVEDILOL 12.5 MG TAB PO SCH ×2 (08:50→21:01)
[2016-11-22] MEDS: CITALOPRAM HBR 20 MG TAB PO SCH (08:50)
[2016-11-22] MEDS: IRBESARTAN 150 MG PO SCH (08:51)
[2016-11-22] MEDS: SODIUM CHLORIDE 0.9% (FLUSH) 10 ML SYG IV SCH ×2 (08:51→21:02)
[2016-11-22] MEDS: VANCOMYCIN HCL INJ 750 MG in SODIUM CHLORIDE 0.9% 250ML 250 ML IVPB SCH (08:51)
--- NOTE | 2016-11-22 10:22 | PN ---
DATE: 11/22/16 SUBJECTIVE: Ms. Solis is doing well and she is actually up and walking right now with her walker and physical therapy. OBJECTIVE: Afebrile. Vital signs stable. Wound is clean. There are no signs or symptoms of infection. ASSESSMENT: Status post hemiarthroplasty for hip fracture. PLAN: The plan at this point is to continue with physical therapy. She has had a change in hemoglobin and has received blood. We will continue to monitor that. She is asymptomatic at this point. #[id number] [facility]
[2016-11-22] MEDS: ATORVASTATIN 10 MG TAB PO SCH (21:01)
[2016-11-22] MEDS: MELATONIN 3 MG TAB PO SCH (21:01)
[2016-11-22] MEDS: OXYBUTYNIN CL 5 MG TAB PO SCH (21:01)
[2016-11-22] MEDS: MULTIPLE VITAMINS W/ MINERALS 1 EA TAB PO SCH (21:02)
--- NOTE | 2016-11-22 21:04 | PN ---
DATE: 11/22/16 SUBJECTIVE: The patient is lying in the bed feeling still quite tired and weak, yet able to walk and participate with her rehab fairly well today. Her therapists feel that it would be okay for us to advance her to Swing Bed rehabilitation status and this will be done by first thing in the morning. Appetite is improved. Coloration is still quite pale. OBJECTIVE: VITAL SIGNS: Afebrile. Pulse 69. Blood pressure 124/72. Pulse oximetry 93% on room air. LUNGS: Clear. HEART: Regular. EXTREMITIES: No significant ecchymosis noted down the length of her left thigh. Fairly significant bleeding apparently was noted at the time of the hip fracture which no doubt contributed to her anemic state. LABORATORY: Her hemoglobin this morning was back up to 8.9 from 8.6 yesterday. Her chemistries show sodium 130, potassium 4.0, osmolality low at 263.6, BUN 20, creatinine 0.6. She continues on the vancomycin for 2 more days during the postoperative period. ASSESSMENT: 1. Postoperative day number 5 left femoral neck fracture requiring left hemiarthroplasty repair performed by Dr. Sinclair, orthopedist, after traumatic fall. 2. Anemia, postoperatively noted with stabilization and slight improvement of her hematocrit which will require further observation and management as indicated. Started on multivitamins and iron supplements to assist. 3. Hypertension. 4. History of osteoarthritis. 5. Oliguria. 6. Hyponatremia, stable, though followup necessary. PLAN: Anticipate discharge from Medical/Surgical Floor and admission to Swing Bed rehabilitation in the morning. We will continue with multivitamin and iron supplements. Recheck laboratory studies including hemoglobin, sodium, potassium , and kidney function in about 4 or 5 days for followup. At this time, no units of packed red blood cells required since she is hemodynamically tolerating her rehabilitation quite well at this time and hopefully we can build it up through a conservative treatment program. Close observation necessary as rehabilitation continues until she is able to safely return home. #[id number] [facility]
[2016-11-23] MEDS: ENOXAPARIN SODIUM 30 MG/0.3 ML SYG SUBCU SCH ×2 (02:11→15:30)
[2016-11-23] MEDS: IV SET AND CAP CHANGE INJ INJ SCH (03:45)
[2016-11-23] MEDS: PANTOPRAZOLE SODIUM TAB 40 MG PO SCH (06:27)
--- NOTE | 2016-11-23 08:18 | PN ---
DATE: 11/23/16 SUBJECTIVE: She is doing well, sitting in a chair and eating breakfast without significant discomfort. OBJECTIVE: Afebrile. Vital signs stable. The wound is clean. There are no signs or symptoms of infection. ASSESSMENT: Status post hemiarthroplasty. PLAN: The plan at this points i for her to continue with weight-bearing as tolerated. She is on Swing Bed status at this time. #[id number] [facility]
[2016-11-23] MEDS: FERROUS GLUCONATE 325 MG TAB PO SCH ×2 (08:20→18:30)
[2016-11-23] MEDS ORDERED: MULTIPLE VITAMINS W/ MINERALS 1 EA TAB ONE (08:39)
[2016-11-23] MEDS ORDERED: SODIUM CHLORIDE 0.9% 250ML 250 ML ONE ×2 (08:39→10:45)
[2016-11-23] MEDS ORDERED: VANCOMYCIN HCL INJ 1,000 MG VIAL IVPB ONE ×2 (08:39→10:45)
[2016-11-23] MEDS: VANCOMYCIN HCL INJ 750 MG in SODIUM CHLORIDE 0.9% 250ML 250 ML IVPB SCH ×2 (08:57→10:50)
[2016-11-23] MEDS: SODIUM CHLORIDE 0.9% (FLUSH) 10 ML SYG IV SCH ×2 (08:59→20:43)
[2016-11-23] MEDS: CARVEDILOL 12.5 MG TAB PO SCH ×2 (08:59→20:44)
[2016-11-23] MEDS: CITALOPRAM HBR 20 MG TAB PO SCH (08:59)
[2016-11-23] MEDS: MULTIPLE VITAMINS W/ MINERALS 1 EA TAB PO SCH ×2 (08:59→20:44)
[2016-11-23] MEDS: HYDROcodone 10MG/APAP 325MG 1 EA TAB PO PRN ×2 (08:59→19:59)
[2016-11-23] MEDS: IRBESARTAN 150 MG PO SCH (09:04)
[2016-11-23 17:00] VITALS: BP 190/72; TEMP 97.8
[2016-11-23] MEDS: MELATONIN 3 MG TAB PO SCH (20:44)
[2016-11-23] MEDS: OXYBUTYNIN CL 5 MG TAB PO SCH (20:44)
[2016-11-23] MEDS: ATORVASTATIN 10 MG TAB PO SCH (20:44)
[2016-11-23 22:31] VITALS: O2SAT 92
--- NOTE | 2016-11-24 10:17 | DS ---
SUPERVISING PHYSICIAN: Angel Wellington MD DISCHARGE DIAGNOSIS: 1. Postoperative day 6 left femoral neck fracture requiring left hemiarthroplasty repair performed by Dr. Sinclair, orthopedist, after a traumatic fall, now requiring strengthening and physical conditioning per physical therapy as a Swing Bed admission. 2. Anemia, postoperatively, but she did have stabilization and improvement of her hematocrit during her previous Acute Care stay. 3. Hypertension. 4. History of osteoarthritis. 5. Oliguria. 6. Hyponatremia, stable at this time, but may require additional followup. HISTORY OF PRESENT ILLNESS: This is an 80-year-old female patient who was admitted to the hospital on 11/17/16 after she went home and stumbled over her suitcase. Her had just been admitted to our hospital for a Swing Bed admission. She was brought to the Emergency Room and her x-ray per radiologic interpretation revealed a truncation of the left femoral neck that was suspicious for a subcapital fracture of the proximal left femur. Dr. Sinclair was called from the Emergency Room and agreed to do surgery. I admitted her to the hospital and the next day, she was taken to the Emergency Room where she had surgical repair of the left hip. HOSPITAL COURSE: Postoperatively, she had no complications. She progressed through her physical therapy without any problems and her pain has been well controlled. It is to be noted that her was also in Swing Bed during the time she had been in the hospital and was recently discharged, so she will be discharged from the hospital and admitted to Swing bed. DISCHARGE PLAN: The patient will be discharged from the hospital and re- admitted to Swing Bed. We will continue her present medications. I have discontinued her Lovenox and we will start her Xarelto for 31 additional doses. Her strengthening and conditioning will be completed per physical therapy. Dr. Sinclair will follow the patient for orthopedic issues. Otherwise, we will address problems as necessary and re-admit her to Swing Bed. DISCHARGE MEDICATIONS: 1. Oxybutynin. 2. Citalopram. 3. Melatonin. 4. Omeprazole. 5. Lipitor. 6. Irbesartan. 7. Carvedilol. 8. Aspirin. 9. Pantoprazole. 10. Chlorhexidine. 11. Fergon. Dr. Wellington is the collaborating physician and available for consultation. #[id number] [facility]
== END 2016-11-23 21:55 | disposition swing bed (61) | DRG 470 ==
LOC: ER 21:32 → MS 11-17 01:19 → UNDOADMIN 11-17 01:19 → MS 11-17 16:02 → UNDOADMIN 11-23 21:52 → MS 11-23 21:52 → UNDODISIN 11-23 21:55
PROVIDERS: ADMIT Nurse Practitioner Acute Care; ATTEND Nurse Practitioner Acute Care
PROC: 0SRS019 Replacement of Left Hip Joint, Femoral Surface with Metal Synthetic Substitute, Cemented, Open Approach (ICD-10-PCS; principal; 2016-11-17 11:00)
DX: S72.012A Unspecified intracapsular fracture of left femur, initial encounter for closed fracture (principal); E87.1 Hypo-osmolality and hyponatremia; W18.09XA Striking against other object with subsequent fall, initial encounter; D64.9 Anemia, unspecified; I10 Essential (primary) hypertension; M19.90 Unspecified osteoarthritis, unspecified site; K44.9 Diaphragmatic hernia without obstruction or gangrene; R34 Anuria and oliguria; Z96.641 Presence of right artificial hip joint; Z79.82 Long term (current) use of aspirin; Z79.899 Other long term (current) drug therapy; Z96.653 Presence of artificial knee joint, bilateral; Y93.9 Activity, unspecified; Y92.009 Unspecified place in unspecified non-institutional (private) residence as the place of occurrence of the external cause; Y99.9 Unspecified external cause status

== ENCOUNTER 2016-11-23 22:08 | Inpatient (IN) | payer MEDICARE, OTHER ==
[2016-11-23] MEDS ORDERED: ACETAMINOPHEN 500 MG TAB PO PRN (22:12)
[2016-11-23] MEDS ORDERED: SODIUM PHOS/BIPHOS ENEMA ADULT 133 ML BTTL PR PRN (22:12)
[2016-11-23] MEDS ORDERED: SODIUM CHLORIDE 0.9% (FLUSH) 10 ML SYG IV PRN (22:12)
[2016-11-23] MEDS: IV SET AND CAP CHANGE INJ INJ SCH (23:00)
--- NOTE | 2016-11-24 08:10 | HP ---
SUPERVISING PHYSICIAN: Angel Wellington MD CHIEF COMPLAINT: Weakness status post left hip surgery. HISTORY OF PRESENT ILLNESS: This is an 80-year-old female patient who was admitted to the hospital on 11/17/16. Prior to the day of admission, she had been with her who was in a hospital in the [facility] and was admitted to [facility] for Swing Bed admission. After she left her here at the hospital, she went home and tripped on a suitcase and fell. She had a truncation of the left femoral neck that was positive for a subcapital fracture of the proximal left femur. Dr. Sinclair performed surgery on her date of admission and did a left hemiarthroplasty. She progressed well through her postoperative period. She has continued her strengthening and conditioning with physical therapy, but at this point she needs further strengthening and conditioning to make sure that she is safe to go home. She was discharged from the hospital earlier today and we are re-admitting her for Swing Bed admission for physical therapy for strengthening and conditioning. PAST MEDICAL HISTORY: 1. Hiatal hernia. 2. Hypertension. 3. Osteoarthritis. 4. History of hypokalemia. PAST SURGICAL HISTORY: 1. Appendectomy. 2. Dilatation and curettage. 3. Cholecystectomy. 4. Bilateral knee replacements. 5. Right hip replacement. 6. Left hemiarthroplasty. CURRENT MEDICATIONS: Per the EMR and awaiting verification. ALLERGIES: NO KNOWN DRUG ALLERGIES. SOCIAL HISTORY: She is . She is retired. She denies any tobacco, ETOH or illicit drug use. REVIEW OF SYSTEMS: All negative with the exception of as described in history of present illness. PHYSICAL EXAMINATION: VITAL SIGNS: Afebrile. Heart rate 72. Blood pressure 185/73. Respiratory rate 16. O2 saturation 92% on room air. GENERAL: This is an 80 year-old female patient who is sitting up in her chair in her hospital room. She is in no acute distress. HEENT: Normocephalic and atraumatic. Pupils are equal and reactive. Oropharynx is clear. NECK: Supple without mass. CHEST: Lungs are clear to auscultation bilaterally. CARDIOVASCULAR: Regular rate and rhythm. ABDOMEN: Soft, nondistended, nontender. Bowel sounds are positive. EXTREMITIES: No cyanosis, clubbing or edema. Bilateral pedal pulses are palpable at +2. She has a dressing to her left hip that is dry and intact. NEUROLOGIC: She is awake, alert and oriented times 3. LABORATORY: There are no labs or films to report at this time. ASSESSMENT: 1. Postoperative day 6 left femoral neck fracture requiring left hemiarthroplasty repair performed by Dr. Sinclair, orthopedist, after a traumatic fall, now requiring strengthening and physical conditioning per physical therapy as a Swing Bed admission. 2. Anemia, postoperatively, but she did have stabilization and improvement of her hematocrit during her previous Acute Care stay. 3. Hypertension. 4. History of osteoarthritis. 5. Oliguria. 6. Hyponatremia, stable at this time, but may require additional followup. PLAN: We will admit the patient to Swing Bed. I initiated the Swing Bed orders. She also will be on Xarelto 10 mg for 31 additional days. I will restart her home medications with the exception of her NSAIDs. She will have physical therapy for strengthening and conditioning. Orthopedic issues will be addressed per Dr. Sinclair. Otherwise, we will continue to monitor the patient closely and followup as needed. #[id number] [facility]
[2016-11-24] MEDS: SODIUM CHLORIDE 0.9% (FLUSH) 10 ML SYG IV SCH ×2 (09:23→21:00)
[2016-11-24] MEDS: RIVAROXABAN 10 MG TAB PO SCH (09:23)
[2016-11-24] MEDS: DOCUSATE SODIUM 100 MG CAP PO SCH (09:23)
[2016-11-24] MEDS ORDERED: HYDROcodone 10MG/APAP 325MG 1 EA TAB ONE (09:54)
[2016-11-24] MEDS ORDERED: CITALOPRAM HBR 20 MG TAB ONE (09:55)
[2016-11-24] MEDS ORDERED: CARVEDILOL 12.5 MG TAB ONE (09:55)
[2016-11-24] MEDS: HYDROcodone 10MG/APAP 325MG 1 EA TAB PO PRN ×2 (09:57→16:53)
[2016-11-24] MEDS: CITALOPRAM HBR 20 MG TAB PO SCH (09:58)
[2016-11-24] MEDS: IRBESARTAN 150 MG PO SCH (10:15)
[2016-11-24] MEDS: CARVEDILOL 12.5 MG TAB PO SCH ×2 (10:16→21:00)
[2016-11-24] MEDS ORDERED: VANCOMYCIN HCL INJ 750 MG in SODIUM CHLORIDE 0.9% 250ML 250 ML IVPB ONE (10:30)
[2016-11-24] MEDS ORDERED: SODIUM CHLORIDE 0.9% 250ML 250 ML ONE (10:48)
[2016-11-24] MEDS ORDERED: VANCOMYCIN HCL INJ 1,000 MG VIAL IVPB ONE (10:49)
[2016-11-24] MEDS: PANTOPRAZOLE SODIUM TAB 40 MG PO SCH ×2 (10:53→16:47)
[2016-11-24] MEDS: FERROUS GLUCONATE 325 MG TAB PO SCH (16:47)
[2016-11-24] MEDS: MAGNESIUM HYDROXIDE 30 ML UD PO PRN (16:53)
[2016-11-24] MEDS ORDERED: ATORVASTATIN 10 MG TAB ONE (19:46)
[2016-11-24] MEDS ORDERED: OXYBUTYNIN CL 5 MG TAB ONE (19:47)
[2016-11-24] MEDS ORDERED: MELATONIN 3 MG TAB ONE (19:47)
[2016-11-24] MEDS: ATORVASTATIN 10 MG TAB PO SCH (21:00)
[2016-11-24] MEDS: MELATONIN 3 MG TAB PO SCH (21:00)
[2016-11-24] MEDS: OXYBUTYNIN CL 5 MG TAB PO SCH (21:00)
[2016-11-25] MEDS: HYDROcodone 10MG/APAP 325MG 1 EA TAB PO PRN ×3 (04:54→18:36)
[2016-11-25] MEDS: PANTOPRAZOLE SODIUM TAB 40 MG PO SCH ×2 (06:32→17:00)
[2016-11-25] MEDS: IRBESARTAN 150 MG PO SCH (08:42)
[2016-11-25] MEDS: CARVEDILOL 12.5 MG TAB PO SCH ×2 (08:43→21:09)
[2016-11-25] MEDS: DOCUSATE SODIUM 100 MG CAP PO SCH (08:43)
[2016-11-25] MEDS: CITALOPRAM HBR 20 MG TAB PO SCH (08:43)
[2016-11-25] MEDS: FERROUS GLUCONATE 325 MG TAB PO SCH ×2 (08:43→17:03)
[2016-11-25] MEDS: OXYBUTYNIN CL 5 MG TAB PO SCH ×2 (08:43→21:08)
[2016-11-25] MEDS: SODIUM CHLORIDE 0.9% (FLUSH) 10 ML SYG IV SCH ×2 (08:44→21:08)
[2016-11-25] MEDS: RIVAROXABAN 10 MG TAB PO SCH (08:44)
[2016-11-25] MEDS ORDERED: FUROSEMIDE 40 MG TAB PO ONE (12:31)
[2016-11-25] MEDS: MELATONIN 3 MG TAB PO SCH (21:08)
[2016-11-25] MEDS: ATORVASTATIN 10 MG TAB PO SCH (21:08)
[2016-11-26] MEDS: HYDROcodone 10MG/APAP 325MG 1 EA TAB PO PRN ×3 (06:32→18:33)
[2016-11-26] MEDS: PANTOPRAZOLE SODIUM TAB 40 MG PO SCH ×2 (06:32→16:40)
[2016-11-26] MEDS: FERROUS GLUCONATE 325 MG TAB PO SCH ×2 (08:19→16:40)
[2016-11-26] MEDS: SODIUM CHLORIDE 0.9% (FLUSH) 10 ML SYG IV SCH ×2 (08:19→21:07)
[2016-11-26] MEDS: OXYBUTYNIN CL 5 MG TAB PO SCH ×2 (08:20→21:08)
[2016-11-26] MEDS: RIVAROXABAN 10 MG TAB PO SCH (08:20)
[2016-11-26] MEDS: CARVEDILOL 12.5 MG TAB PO SCH ×2 (08:20→21:07)
[2016-11-26] MEDS: CITALOPRAM HBR 20 MG TAB PO SCH (08:20)
[2016-11-26] MEDS: DOCUSATE SODIUM 100 MG CAP PO SCH (08:20)
[2016-11-26] MEDS: IRBESARTAN 150 MG PO SCH (08:21)
[2016-11-26] MEDS: FUROSEMIDE 40 MG TAB PO SCH (13:13)
--- NOTE | 2016-11-26 13:42 | PN ---
DATE: 11/26/16 SUPERVISING PHYSICIAN: Gera Ruelas M.D. SUBJECTIVE: The patient is sitting up in her chair eating her breakfast. She has no complaints of shortness of breath, chest pain, nausea or vomiting. She does complain of lower extremity edema. She was given Lasix yesterday and she says it is better. OBJECTIVE: VITAL SIGNS: She is afebrile, heart rate 72, blood pressure 145/65, respiratory rate 18, O2 sat 91% on room air. RESPIRATORY: Clear to auscultation bilaterally. CARDIAC: Regular rate and rhythm. ABDOMEN: Soft. Bowel sounds are positive. Non-tender. EXTREMITIES: +1 edema to bilateral lower extremities. Pedal pulses are palpable bilaterally at +1. LABORATORY: There are no labs and films to report at this time. ASSESSMENT: 1. Postoperative day 9 left femoral neck fracture requiring left hemiarthroplasty repair performed by Dr. Sinclair, orthopedist, after a traumatic fall, now requiring strengthening and physical conditioning per physical therapy as a Swing Bed admission. 2. Anemia, postoperatively, but she did have stabilization and improvement of her hematocrit during her previous Acute Care stay. 3. Lower extremity edema that responded well to Furosemide yesterday and will be continued at this time. 4. Hypertension. 5. History of osteoarthritis. 6. Oliguria. 7. Hyponatremia, stable at this time, but may require additional followup. PLAN: I have added Lasix as a scheduled medication. We will continue present supportive care. She is to continue with her physical therapy for strengthening and conditioning. I will order a BMP on Monday morning to make sure that we have not altered her electrolytes as we may need to add potassium supplementation. For now we will continue to monitor closely and followup as needed. Dr. Ruelas is the collaborating physician and available for consultation. #[id number] [facility]
[2016-11-26] MEDS: MELATONIN 3 MG TAB PO SCH (21:08)
[2016-11-26] MEDS: ATORVASTATIN 10 MG TAB PO SCH (21:08)
[2016-11-26] MEDS: IV SET AND CAP CHANGE INJ INJ SCH (22:30)
[2016-11-27] MEDS: HYDROcodone 10MG/APAP 325MG 1 EA TAB PO PRN ×2 (03:43→08:46)
[2016-11-27] MEDS: PANTOPRAZOLE SODIUM TAB 40 MG PO SCH ×2 (06:36→17:13)
[2016-11-27] MEDS: FERROUS GLUCONATE 325 MG TAB PO SCH ×2 (08:04→17:13)
[2016-11-27] MEDS: IRBESARTAN 150 MG PO SCH (08:44)
[2016-11-27] MEDS: OXYBUTYNIN CL 5 MG TAB PO SCH ×2 (08:45→20:43)
[2016-11-27] MEDS: RIVAROXABAN 10 MG TAB PO SCH (08:45)
[2016-11-27] MEDS: FUROSEMIDE 40 MG TAB PO SCH (08:45)
[2016-11-27] MEDS: CARVEDILOL 12.5 MG TAB PO SCH ×2 (08:45→20:43)
[2016-11-27] MEDS: CITALOPRAM HBR 20 MG TAB PO SCH (08:45)
[2016-11-27] MEDS: DOCUSATE SODIUM 100 MG CAP PO SCH (08:45)
[2016-11-27] MEDS: SODIUM CHLORIDE 0.9% (FLUSH) 10 ML SYG IV SCH ×2 (08:46→21:00)
[2016-11-27] MEDS: ATORVASTATIN 10 MG TAB PO SCH (20:43)
[2016-11-27] MEDS: MELATONIN 3 MG TAB PO SCH (20:43)
[2016-11-28] MEDS: MAGNESIUM HYDROXIDE 30 ML UD PO PRN (04:08)
[2016-11-28] MEDS: HYDROcodone 10MG/APAP 325MG 1 EA TAB PO PRN ×2 (04:08→13:47)
[2016-11-28] MEDS: PANTOPRAZOLE SODIUM TAB 40 MG PO SCH ×2 (06:16→17:08)
[2016-11-28] MEDS: FERROUS GLUCONATE 325 MG TAB PO SCH ×2 (08:01→17:08)
[2016-11-28] MEDS: RIVAROXABAN 10 MG TAB PO SCH (09:22)
[2016-11-28] MEDS: CARVEDILOL 12.5 MG TAB PO SCH ×2 (09:23→21:23)
[2016-11-28] MEDS: DOCUSATE SODIUM 100 MG CAP PO SCH (09:23)
[2016-11-28] MEDS: OXYBUTYNIN CL 5 MG TAB PO SCH ×2 (09:23→21:23)
[2016-11-28] MEDS: CITALOPRAM HBR 20 MG TAB PO SCH (09:23)
[2016-11-28] MEDS: FUROSEMIDE 40 MG TAB PO SCH (09:23)
[2016-11-28] MEDS: IRBESARTAN 150 MG PO SCH (09:24)
[2016-11-28] MEDS: SODIUM CHLORIDE 0.9% (FLUSH) 10 ML SYG IV SCH (10:41)
[2016-11-28] MEDS: ATORVASTATIN 10 MG TAB PO SCH (21:23)
[2016-11-28] MEDS: MELATONIN 3 MG TAB PO SCH (21:23)
[2016-11-29] MEDS: PANTOPRAZOLE SODIUM TAB 40 MG PO SCH ×2 (06:20→18:28)
[2016-11-29] MEDS: CITALOPRAM HBR 20 MG TAB PO SCH (08:10)
[2016-11-29] MEDS: FERROUS GLUCONATE 325 MG TAB PO SCH ×2 (08:10→18:28)
[2016-11-29] MEDS: DOCUSATE SODIUM 100 MG CAP PO SCH (08:11)
[2016-11-29] MEDS: OXYBUTYNIN CL 5 MG TAB PO SCH ×2 (08:11→21:09)
[2016-11-29] MEDS: IRBESARTAN 150 MG PO SCH (08:11)
[2016-11-29] MEDS: RIVAROXABAN 10 MG TAB PO SCH (08:12)
[2016-11-29] MEDS: CARVEDILOL 12.5 MG TAB PO SCH ×2 (08:17→21:09)
[2016-11-29] MEDS: FUROSEMIDE 40 MG TAB PO SCH (08:26)
[2016-11-29] MEDS: HYDROcodone 10MG/APAP 325MG 1 EA TAB PO PRN ×2 (11:11→15:01)
--- NOTE | 2016-11-29 15:16 | PN ---
DATE: 11/29/16 SUBJECTIVE: Ms. Solis is doing pretty well today and has good pain control right now. OBJECTIVE: Afebrile. Vital signs stable. Wound is clean. No signs or symptoms of infection. ASSESSMENT: Status post hemiarthroplasty. PLAN: She is currently on Swing Bed and will continue that until she progresses to an acceptable status for discharge. #[id number] [facility]
--- NOTE | 2016-11-29 21:04 | PN ---
DATE: 11/29/16 SUPERVISING PHYSICIAN: Angel Wellington M.D. SUBJECTIVE: The patient continues to progress well in her physical therapy. She has good pain control and she remains afebrile. OBJECTIVE: VITAL SIGNS: Temperature 98.1, pulse 66, blood pressure 165/71, respirations 18, satting 94 to 95% on room air. I's and O's are on the negative side since she started Lasix showing a negative 380 today with 1220 in , 1600 out. She has had multiple bowel movements since admission to Swing Bed. Current weight is 78.97 kg. CHEST: Lungs are clear to auscultation bilaterally. HEART: Regular rate and rhythm. ABDOMEN: Soft, non-tender. Positive bowel sounds. EXTREMITIES: No clubbing, cyanosis or edema. Left hip incisional site has a bandage in place that is clean and dry. There are no signs of infection. Pulses distally are strong. She does have transient lower extremity edema but has improved since she started on Lasix with legs up when she is not ambulatory. NEUROLOGIC: She is alert and oriented times three. LABORATORY: BNP since admission to Swing Bed on 11/28/16 shows sodium 134, potassium was normal at 3.7, BUN and creatinine were within normal limits at 12 and 0.68. ASSESSMENT: 1. Postoperative day 12 of left femoral neck fracture requiring left hemiarthroplasty performed by Dr. Sinclair after traumatic fall requiring continued strengthening and physical conditioning by Physical Therapy on Swing Bed. 2. History of postoperative anemia showing stabilization improvement prior to discharge from Acute Care. 3. Lower extremity edema, improvement after Lasix. 4. Hypertension. 5. History of osteoarthritis. 6. Oliguria that has improved with Lasix. 7. Hyponatremia, persistent but stable. Will continue to followup. PLAN: Will continue with current plan of care with Lasix to monitor closely with repeat BNP weekly with close monitoring. Will continue to monitor as she progresses through her physical therapy and strengthening efforts. Will anticipate discharge at the discretion of Physical Therapy once the patient has met her goals. Until then, continue to monitor the patient closely and treat appropriately. #[id number] [facility]
[2016-11-29] MEDS: MELATONIN 3 MG TAB PO SCH (21:09)
[2016-11-29] MEDS: ATORVASTATIN 10 MG TAB PO SCH (21:09)
[2016-11-30] MEDS: PANTOPRAZOLE SODIUM TAB 40 MG PO SCH ×2 (06:10→17:29)
[2016-11-30] MEDS: FERROUS GLUCONATE 325 MG TAB PO SCH ×2 (08:11→17:51)
[2016-11-30] MEDS: IRBESARTAN 150 MG PO SCH (09:14)
[2016-11-30] MEDS: CARVEDILOL 12.5 MG TAB PO SCH ×2 (09:15→21:13)
[2016-11-30] MEDS: OXYBUTYNIN CL 5 MG TAB PO SCH ×2 (09:15→21:13)
[2016-11-30] MEDS: FUROSEMIDE 40 MG TAB PO SCH (09:15)
[2016-11-30] MEDS: CITALOPRAM HBR 20 MG TAB PO SCH (09:15)
[2016-11-30] MEDS: DOCUSATE SODIUM 100 MG CAP PO SCH (09:15)
[2016-11-30] MEDS: RIVAROXABAN 10 MG TAB PO SCH (09:15)
[2016-11-30] MEDS: HYDROcodone 10MG/APAP 325MG 1 EA TAB PO PRN ×2 (09:27→19:39)
[2016-11-30] MEDS: MELATONIN 3 MG TAB PO SCH (21:13)
[2016-11-30] MEDS: ATORVASTATIN 10 MG TAB PO SCH (21:13)
[2016-12-01] MEDS: PANTOPRAZOLE SODIUM TAB 40 MG PO SCH ×2 (06:33→16:25)
[2016-12-01] MEDS: FERROUS GLUCONATE 325 MG TAB PO SCH ×2 (08:02→17:40)
[2016-12-01] MEDS: HYDROcodone 10MG/APAP 325MG 1 EA TAB PO PRN (08:03)
[2016-12-01] MEDS: RIVAROXABAN 10 MG TAB PO SCH (09:50)
[2016-12-01] MEDS: CITALOPRAM HBR 20 MG TAB PO SCH (09:50)
[2016-12-01] MEDS: CARVEDILOL 12.5 MG TAB PO SCH ×2 (09:51→20:07)
[2016-12-01] MEDS: OXYBUTYNIN CL 5 MG TAB PO SCH ×2 (09:51→20:07)
[2016-12-01] MEDS: FUROSEMIDE 40 MG TAB PO SCH (09:51)
[2016-12-01] MEDS: IRBESARTAN 150 MG PO SCH (09:57)
[2016-12-01] MEDS: DOCUSATE SODIUM 100 MG CAP PO SCH (10:05)
[2016-12-01] MEDS: ATORVASTATIN 10 MG TAB PO SCH (20:07)
[2016-12-01] MEDS: MELATONIN 3 MG TAB PO SCH (20:07)
[2016-12-02] MEDS: PANTOPRAZOLE SODIUM TAB 40 MG PO SCH ×2 (06:15→17:24)
[2016-12-02] MEDS: HYDROcodone 10MG/APAP 325MG 1 EA TAB PO PRN (06:15)
[2016-12-02] MEDS: FERROUS GLUCONATE 325 MG TAB PO SCH ×2 (07:57→17:24)
[2016-12-02] MEDS: RIVAROXABAN 10 MG TAB PO SCH (08:37)
[2016-12-02] MEDS: DOCUSATE SODIUM 100 MG CAP PO SCH (08:37)
[2016-12-02] MEDS: OXYBUTYNIN CL 5 MG TAB PO SCH ×2 (08:37→20:12)
[2016-12-02] MEDS: CITALOPRAM HBR 20 MG TAB PO SCH (08:37)
[2016-12-02] MEDS: CARVEDILOL 12.5 MG TAB PO SCH ×2 (08:37→20:12)
[2016-12-02] MEDS: FUROSEMIDE 40 MG TAB PO SCH (08:38)
[2016-12-02] MEDS: IRBESARTAN 150 MG PO SCH (09:04)
[2016-12-02] MEDS ORDERED: ACETAMINOPHEN W/COD #3 TAB 1 EA TAB PO PRN (11:00)
[2016-12-02] MEDS: MELATONIN 3 MG TAB PO SCH (20:12)
[2016-12-02] MEDS: ATORVASTATIN 10 MG TAB PO SCH (20:12)
[2016-12-03 00:12] VITALS: O2SAT 96
[2016-12-03] MEDS: PANTOPRAZOLE SODIUM TAB 40 MG PO SCH (06:00)
[2016-12-03] MEDS: CARVEDILOL 12.5 MG TAB PO SCH (08:22)
[2016-12-03] MEDS: HYDROcodone 10MG/APAP 325MG 1 EA TAB PO PRN (08:22)
[2016-12-03] MEDS: RIVAROXABAN 10 MG TAB PO SCH (08:22)
[2016-12-03] MEDS: DOCUSATE SODIUM 100 MG CAP PO SCH (08:22)
[2016-12-03] MEDS: FERROUS GLUCONATE 325 MG TAB PO SCH (08:22)
[2016-12-03] MEDS: CITALOPRAM HBR 20 MG TAB PO SCH (08:23)
[2016-12-03] MEDS: IRBESARTAN 150 MG PO SCH (08:26)
[2016-12-03] MEDS: OXYBUTYNIN CL 5 MG TAB PO SCH (08:26)
[2016-12-03 11:08] VITALS: BP 143/12; TEMP 98.2
--- NOTE | 2016-12-05 19:59 | DS ---
SUPERVISING PHYSICIAN: Angel Wellington M.D. DISCHARGE DIAGNOSIS: 1. Postoperative day 16 of left femoral neck fracture requiring left hemiarthroplasty performed by Dr. Sinclair after traumatic fall requiring continued strengthening and physical conditioning by Physical Therapy on Swing Bed. 2. History of postoperative anemia showing stabilization improvement prior to discharge from Acute Care and admission to Swing Bed. 3. Lower extremity edema, improved after Lasix. 4. Hypertension. 5. History of osteoarthritis. 6. Oliguria, improved after Lasix. 7. Hyponatremia, persistent but stable. HISTORY OF PRESENT ILLNESS: Ms. Solis is an 80-year-old female patient who was admitted to the hospital on 11/17/16. Prior to the day of admission, she had been with her who was in a hospital in the [facility] and was admitted to [facility] for Swing Bed admission. After she left her at the hospital, she went home and tripped on a suitcase and fell. She had a truncation of the left femoral neck that was positive for a subcapital fracture of the proximal left femur. Dr. Sinclair performed surgery on the date of admission and did a left hemiarthroplasty. She progressed well through her postoperative period. She continued her strengthening and conditioning with physical therapy, but at point of discharge she needs further strengthening and conditioning to make sure that she was safe to go home. She was then discharged from the hospital on Acute Care and re-admitted to Swing Bed for physical therapy for strengthening and reconditioning. LABORATORY STUDIES: Chemistries show sodium 134, potassium 3.7, BUN 12, creatinine 0.68. No other laboratory studies were completed. MICROBIOLOGY: No other cultures were submitted on Swing Bed. RADIOLOGY: No radiographic studies were submitted through Swing Bed. HOSPITAL COURSE: Ms. Solis was admitted to Swing Bed on 11/23/16 as noted in the History of Present Illness for continued physical therapy, rehabilitation and strengthening. She progressed well through her stay during Swing Bed and was felt well enough to be continued in the outpatient setting with [facility] physical therapy and was discharged on 12/03/16. PLAN: Ms. Solis was discharged on 12/03/16 to have continued home health and physical therapy through [facility] and to have close clinical followup with Dr. Sinclair as scheduled on 12/16/16. She was to resume her home medications as instructed and start new prescriptions as directed. Wound care was as per Dr. Sinclair's instructions. She was to return to the hospital or call Dr. Sinclair if any concerning symptoms or further questions regarding care. She was discharged with new prescriptions to include: 1. [place] 5/325 one every 4 hours as needed for pain, #30. 2. Xarelto 10 mg tablets, #19. All other prescriptions as before hospitalization were to be resumed. Diet at discharge was as tolerated. Activity as per Physical Therapy. Condition at discharge was stable and improved. [facility][id number] [facility]
== END 2016-12-03 11:55 | disposition home health service (06) | DRG 560 ==
LOC: MS 22:08
PROVIDERS: ADMIT Nurse Practitioner Acute Care; ATTEND Nurse Practitioner Acute Care
DX: S72.012D Unspecified intracapsular fracture of left femur, subsequent encounter for closed fracture with routine healing (principal); E87.1 Hypo-osmolality and hyponatremia; D64.9 Anemia, unspecified; R34 Anuria and oliguria; R60.0 Localized edema; K44.9 Diaphragmatic hernia without obstruction or gangrene; I10 Essential (primary) hypertension; M19.90 Unspecified osteoarthritis, unspecified site; Z96.653 Presence of artificial knee joint, bilateral; Z96.643 Presence of artificial hip joint, bilateral

== ENCOUNTER → 2017-01-04 | Outpatient (CLI) | payer MEDICARE, OTHER | END | disposition home or self-care (01) | LOC: GMAL 16:39 | PROVIDERS: ATTEND Family Medicine | DX: D53.9 Nutritional anemia, unspecified (principal) ==

== ENCOUNTER → 2017-02-20 | Outpatient (CLI) | payer MEDICARE, OTHER | END | disposition home or self-care (01) | LOC: BFHH 14:15 | PROVIDERS: ATTEND Family Medicine | DX: D64.9 Anemia, unspecified (principal); I10 Essential (primary) hypertension; M19.90 Unspecified osteoarthritis, unspecified site ==

== ENCOUNTER → 2017-03-01 | Outpatient (CLI) | payer MEDICARE, OTHER | LOC: SL 20:30 | PROVIDERS: ATTEND Family Medicine | DX: G47.33 Obstructive sleep apnea (adult) (pediatric) (principal) ==

== ENCOUNTER → 2017-03-20 | Outpatient (CLI) | payer MEDICARE, OTHER | LOC: SL 20:30 | PROVIDERS: ATTEND Family Medicine | DX: G47.33 Obstructive sleep apnea (adult) (pediatric) (principal) ==

== ENCOUNTER → 2017-03-28 | Outpatient (CLI) | payer MEDICARE, OTHER | END | disposition home or self-care (01) | LOC: GMAL 14:12 | PROVIDERS: ATTEND Family Medicine | DX: R35.0 Frequency of micturition (principal) ==

== ENCOUNTER → 2017-04-03 | Outpatient (CLI) | payer MEDICARE, OTHER ==
--- NOTE | 2017-04-03 15:36 | RAD ---
EXAM DESCRIPTION: Hip,Right 2 Views (accession [id number]), Pelvis (accession [id number]) CLINICAL HISTORY: 81 years,Female,PAIN IN RIGHT HIP COMPARISON: November 17, 2016 FINDINGS: The right hip demonstrates total hip arthroplasty without evidence hardware failure or lucency about the cement or hardware devices. No dislocations. The left total hip arthroplasty also appears unremarkable.. The joint spaces are unremarkable. The pelvis demonstrates no fractures or acute abnormalities. There is moderate loss of disc height at L4-5 on the right.. IMPRESSION: Bilateral total hip arthroplasties which appear unremarkable. No acute findings. Electronically signed by: True Bradley MD 04/03/2017 3:34 PM CDT
--- NOTE | 2017-04-03 15:36 | RAD ---
EXAM DESCRIPTION: Hip,Right 2 Views (accession [id number]), Pelvis (accession [id number]) CLINICAL HISTORY: 81 years,Female,PAIN IN RIGHT HIP COMPARISON: November 17, 2016 FINDINGS: The right hip demonstrates total hip arthroplasty without evidence hardware failure or lucency about the cement or hardware devices. No dislocations. The left total hip arthroplasty also appears unremarkable.. The joint spaces are unremarkable. The pelvis demonstrates no fractures or acute abnormalities. There is moderate loss of disc height at L4-5 on the right.. IMPRESSION: Bilateral total hip arthroplasties which appear unremarkable. No acute findings. Electronically signed by: True Bradley MD 04/03/2017 3:34 PM CDT
== END | disposition home or self-care (01) ==
LOC: RAD 09:19
PROVIDERS: ATTEND Orthopaedic Surgery
DX: M25.551 Pain in right hip (principal)

== ENCOUNTER 2017-04-16 16:01 | Emergency (ER) | payer MEDICARE, OTHER ==
[2017-04-16 16:35] VITALS: TEMP 97.7
--- NOTE | 2017-04-16 17:07 | ED.PDOC ---
History of Present Illness - General Chief Complaint: Trauma Stated Complaint: s/p fall Time Seen by Provider: 04/16/17 16:58 Source: patient Exam Limitations: no limitations - History of Present Illness Initial Comments: Fatemeh Solis 81 y/o female stated was walking in [place] with walker and foot got tangled causing her to fall and landing on her buttocks.Denies head/neck/ chest pains or injuries.Stated had recent hip surgery 2 weeks ago. Occurred: this morning Injuries/Pain Location: other - buttocks Reason for Fall: tripped Loss of Consciousness: no loss of consciousness Improving Factors: rest Worsening Factors: movement Associated Symptoms (Fall): other - pain Allergies/Adverse Reactions: Allergies NO KNOWN ALLERGY Allergy (Verified 01/17/16 19:30) Home Medications: Ambulatory Orders Citalopram Hydrobromide 20 mg PO DAILY 01/17/16 Melatonin 5 mg PO BEDTIME 01/17/16 Oxybutynin Chloride 5 mg PO BID 01/17/16 Aspirin [Ecotrin] 81 mg PO DAILY 11/18/16 Atorvastatin Calcium [Lipitor] 10 mg PO BEDTIME 11/18/16 Carvedilol [Coreg] 25 mg PO BID 11/18/16 Diclofenac Sodium [Voltaren] 75 mg PO BEDTIME 11/18/16 Irbesartan 150 mg PO DAILY 11/18/16 Pantoprazole Sodium 40 mg PO BID 11/18/16 Chlorhexidine Mouth Rinse [Peridex] 15 ml SWSP BID PRN 11/23/16 Ferrous Gluconate [Fergon] 325 mg PO BIDFD 11/23/16 HYDROcodone 5MG/APAP 325MG [[place] 5/325] 1 ea PO .Q4H #30 tab 12/03/16 Rivaroxaban [Xarelto] 10 mg PO DAILY #19 12/03/16 Review of Systems - Review of Systems Constitutional: States: no symptoms reported EENTM: States: no symptoms reported Respiratory: States: no symptoms reported Cardiology: States: no symptoms reported Musculoskeletal: States: see HPI Past Medical History (General) - Patient Medical History Hx Seizures: No Hx Stroke: No Hx Dementia: No Hx Asthma: No Hx of COPD: No Hx Cardiac Disorders: Yes Hx Congestive Heart Failure: No Hx Pacemaker: No Hx Hypertension: Yes Hx Thyroid Disease: No Hx Diabetes: No Hx Gastroesophageal Reflux: Yes Hx Renal Disease: No Hx Cancer: No Hx of HIV: No Hx Hepatitis C: No Hx MRSA: No MRSA Source:: nose Surgical History: appendectomy, cholecystectomy, tonsillectomy - Vaccination History Hx Tetanus, Diphtheria Vaccination: No Hx Influenza Vaccination: Yes Hx Pneumococcal Vaccination: Yes - Social History Hx Tobacco Use: No Hx Chewing Tobacco Use: No Hx Alcohol Use: No Hx Substance Use: No Hx Substance Use Treatment: No Hx Depression: No Hx Physical Abuse: No Hx Emotional Abuse: No Hx Suspected Abuse: No - Activities of Daily Living Patient Lives Alone: No - Female History Patient : No Physical Exam - Physical Exam General Appearance: Alert, No apparent distress Head Injury: no evidence of injury Eye Exam: bilateral normal ENT Exam: hearing grossly normal, no evidence of ENT injury, no dental injury Peripheral Pulses: radial,right: 2+, radial,left: 2+ Cardiovascular/Respiratory: regular rate, rhythm, normal peripheral pulses Gastrointestinal/Abdominal: non tender, soft, no organomegaly Back Exam: vertebral tenderness - sacrum/coccyx Neurologic: no motor/sensory deficits, alert, oriented x 3 Skin Exam: normal color - Anny Coma Score Best Eye Response ([place]): (4) open spontaneously Best Verbal Response ([place]): (5) oriented Best Motor Response ([place]): (6) obeys commands [place] Total: 15 Progress - Progress Progress: 04/16/17 17:09 Vital Signs - 8 hr 04/16/17 16:30 Temperature 97.7 F Pulse Rate [ 60 Left Brachial] Respiratory 20 Rate Blood Pressure 146/71 [Left Arm] O2 Sat by Pulse 95 Oximetry Departure - Departure Clinical Impression: Status post hip surgery Fall Qualifiers: Encounter type: initial encounter Qualified Code(s): W19.XXXA - Unspecified fall, initial encounter Contusion of buttock Qualifiers: Encounter type: initial encounter Qualified Code(s): S30.0XXA - Contusion of lower back and pelvis, initial encounter Pain in lower back Qualifiers: Chronicity: acute Back pain laterality: midline Sciatica presence: without sciatica Qualified Code(s): M54.5 - Low back pain Time of Disposition: 17:57 Disposition: Discharge to Home or Self Care Departure Forms: Patient Portal Self Enrollment Instructions: Contusion Activity: ambulate only with walker Referrals: True Alvarez III, MD [Primary Care Provider] - 1-2 Weeks Home Medications: Ambulatory Orders Citalopram Hydrobromide 20 mg PO DAILY 01/17/16 Melatonin 5 mg PO BEDTIME 01/17/16 Oxybutynin Chloride 5 mg PO BID 01/17/16 Aspirin [Ecotrin] 81 mg PO DAILY 11/18/16 Atorvastatin Calcium [Lipitor] 10 mg PO BEDTIME 11/18/16 Carvedilol [Coreg] 25 mg PO BID 11/18/16 Diclofenac Sodium [Voltaren] 75 mg PO BEDTIME 11/18/16 Irbesartan 150 mg PO DAILY 11/18/16 Pantoprazole Sodium 40 mg PO BID 11/18/16 Chlorhexidine Mouth Rinse [Peridex] 15 ml SWSP BID PRN 11/23/16 Ferrous Gluconate [Fergon] 325 mg PO BIDFD 11/23/16 HYDROcodone 5MG/APAP 325MG [[place] 5/325] 1 ea PO .Q4H #30 tab 12/03/16 Rivaroxaban [Xarelto] 10 mg PO DAILY #19 12/03/16
--- NOTE | 2017-04-16 17:37 | RAD ---
EXAM DESCRIPTION: Hip,Right 2 Views CLINICAL HISTORY: 81 years Female, pain COMPARISON: April 03, 2017 TECHNIQUE: AP and frog-leg views FINDINGS: Status post total hip arthroplasty. Acetabular and femoral components remain well seated. No fractures are identified. There has been no significant change. IMPRESSION: Postarthroplasty changes. No significant change compared with previous study. No fractures Electronically signed by: Praneeth Bell 04/16/2017 5:36 PM CDT
--- NOTE | 2017-04-16 17:40 | RAD ---
Examination: XR PELVIS 3 OR MORE VIEWS dated 04/16/2017 4:58 PM CDT History: pain Comparison: 04/03/2017 Technique: Frontal and lateral views of both hips FINDINGS: Post surgical changes of bilateral hip arthroplasties without obvious complication. No dislocation. Intact pelvic ring. Symmetric SI joints. IMPRESSION: Bilateral hip arthroplasties without acute findings. Electronically signed by: Angel Israel MD 04/16/2017 5:39 PM CDT
[2017-04-16 17:48] VITALS: BP 152/67; O2SAT 93
--- NOTE | 2017-04-16 17:48 | RAD ---
Examination: XR LUMBAR SPINE 2-3 VIEWS dated 04/16/2017 4:58 PM CDT History: pain Comparison: None Technique: Frontal and lateral views of the lumbar spine with a coned down view of the lumbosacral junction. FINDINGS: There is mild retrolisthesis of L3 on L4. The lumbar vertebral bodies demonstrate normal height and alignment. Diffuse osteopenia. Moderate intervertebral disc space height loss seen throughout the lumbar spine. Scattered degenerative endplate changes and facet arthropathy. Right upper quadrant cholecystectomy clips. IMPRESSION: Multilevel degenerative changes without acute findings. Electronically signed by: Angel Israel MD 04/16/2017 5:46 PM CDT
--- NOTE | 2017-04-16 17:49 | RAD ---
Examination: XR SACRUM COCCYX 2 OR MORE VIEWS dated 04/16/2017 4:58 PM CDT History: pain Comparison: None Technique: Three views of the sacrum and coccyx FINDINGS AND IMPRESSION: No displaced fracture of the sacrum or coccyx is identified. Electronically signed by: Angel Israel MD 04/16/2017 5:47 PM CDT
[2017-04-16] MEDS ORDERED: HYDROCOD/APAP 5/325 (ER DISP) #3 TAB PO ONE (17:59)
== END 2017-04-16 18:21 | disposition home or self-care (01) ==
LOC: ER 16:01
DX: S30.0XXA Contusion of lower back and pelvis, initial encounter (principal); I10 Essential (primary) hypertension; K21.9 Gastro-esophageal reflux disease without esophagitis; Z79.82 Long term (current) use of aspirin; Z79.899 Other long term (current) drug therapy; W01.0XXA Fall on same level from slipping, tripping and stumbling without subsequent striking against object, initial encounter; Y92.22 Religious institution as the place of occurrence of the external cause

== ENCOUNTER 2017-05-15 17:48 | Emergency (ER) | payer MEDICARE, OTHER ==
[2017-05-15] MEDS ORDERED: LIDOCAINE VIS-MYLANTA 30 ML UD PO ONE (18:02)
[2017-05-15] MEDS ORDERED: ASPIRIN TABLET 325 MG TAB PO ONE (18:02)
[2017-05-15] MEDS ORDERED: HYDROcodone 7.5MG/APAP 325MG 1 EA TAB PO ONE (18:02)
[2017-05-15 18:06] VITALS: TEMP 98.2
--- NOTE | 2017-05-15 19:06 | RAD ---
EXAM: Chest,1 View CLINICAL INDICATION: 81-year-old female with chest pain for two hours. TECHNIQUE: Single view, AP portable chest was obtained. COMPARISON: 11/16/2016. FINDINGS: Stable cardiac and mediastinal silhouette. Heart size is normal. Atherosclerotic thoracic aorta. Low lung volumes grossly clear without focal opacity, pneumothorax or pleural effusions. The visualized bones are within normal limits. IMPRESSION: No acute cardiopulmonary abnormalities. Electronically signed by: Adwoa Sheffield MD 05/15/2017 7:05 PM [facility] Workstation: [id number]
[2017-05-15] MEDS ORDERED: cloNIDine HCL 0.1 MG TAB PO ONE (20:02)
[2017-05-15] MEDS ORDERED: cefTRIAXone SODIUM 1 GM VIAL IM ONE (20:43)
--- NOTE | 2017-05-15 20:46 | ED.PDOC ---
History of Present Illness - General Chief Complaint: Chest Pain/[place] Stated Complaint: chest pain Time Seen by Provider: 05/15/17 17:54 Source: patient, family Exam Limitations: no limitations - History of Present Illness Initial Comments: the patient is a 81-year-old female presenting to the emergency room secondary to chest pain that started approximately 2 hours prior to arrival. It started while she was having her coffee. 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 On exam she has diffuse musculoskeletal anterior wall discomfort palpation that does reproduce the pain that she is feeling. It does hurt a little bit when she takes a deep breath. She is not having any nausea or vomiting. She has had an issue with esophagitis in the past. No palpitations. No real shortness of breath. It is not worse sitting up or lying back. The pressure is elevated but the patient is moderately anxious. She does have a few beats of PVCs on her telemetry monitoring. Timing/Duration: 1-3 hours Severity: moderate Improving Factors: nothing Worsening Factors: movement Associated Symptoms: chest pain Allergies/Adverse Reactions: Allergies NO KNOWN ALLERGY Allergy (Verified 05/15/17 18:06) Home Medications: Ambulatory Orders Citalopram Hydrobromide 20 mg PO DAILY 01/17/16 Melatonin 5 mg PO BEDTIME 01/17/16 Oxybutynin Chloride 5 mg PO BID 01/17/16 Aspirin [Ecotrin] 81 mg PO DAILY 11/18/16 Atorvastatin Calcium [Lipitor] 10 mg PO BEDTIME 11/18/16 Carvedilol [Coreg] 25 mg PO BID 11/18/16 Diclofenac Sodium [Voltaren] 75 mg PO BEDTIME 11/18/16 Irbesartan 150 mg PO DAILY 11/18/16 Pantoprazole Sodium 40 mg PO BID 11/18/16 Chlorhexidine Mouth Rinse [Peridex] 15 ml SWSP BID PRN 11/23/16 Ferrous Gluconate [Fergon] 325 mg PO BIDFD 11/23/16 HYDROcodone 5MG/APAP 325MG [[place] 5/325] 1 ea PO .Q4H #30 tab 12/03/16 Rivaroxaban [Xarelto] 10 mg PO DAILY #19 12/03/16 Cephalexin Monohydrate [Keflex] 500 mg PO Q8H #15 cap 05/15/17 Review of Systems - Review of Systems Constitutional: States: no symptoms reported EENTM: States: no symptoms reported Respiratory: States: no symptoms reported Cardiology: States: chest pain Gastrointestinal/Abdominal: States: no symptoms reported Genitourinary: States: no symptoms reported Musculoskeletal: States: see HPI Skin: States: no symptoms reported Neurological: States: anxiety Endocrine: States: no symptoms reported All other Systems: No Change from Baseline Past Medical History (General) - Patient Medical History Hx Seizures: No Hx Stroke: No Hx Dementia: No Hx Asthma: No Hx of COPD: No Hx Cardiac Disorders: Yes Hx Congestive Heart Failure: No Hx Pacemaker: No Hx Hypertension: Yes Hx Thyroid Disease: No Hx Diabetes: No Hx Gastroesophageal Reflux: Yes Hx Renal Disease: No Hx Cancer: No Hx of HIV: No Hx Hepatitis C: No Hx MRSA: No MRSA Source:: nose Surgical History: appendectomy, cholecystectomy, tonsillectomy - Vaccination History Hx Tetanus, Diphtheria Vaccination: No Hx Influenza Vaccination: Yes Hx Pneumococcal Vaccination: Yes - Social History Hx Tobacco Use: No Hx Chewing Tobacco Use: No Hx Alcohol Use: No Hx Substance Use: No Hx Substance Use Treatment: No Hx Depression: No Hx Physical Abuse: No Hx Emotional Abuse: No Hx Suspected Abuse: No - Female History Patient is a Female of Child Bearing Age (10 -59 yrs old): No Patient : No Family Medical History - Family History Mother Family History: No Known Living Status: Hx Family Cancer: Yes Father Living Status: Hx Family Hypertension: Yes Hx Cardiac Disease: Yes Physical Exam - Physical Exam General Appearance: Alert, Anxious, No apparent distress Eye Exam: bilateral normal Ears, Nose, Throat: normal ENT inspection, normal pharynx Neck: full range of motion, supple Respiratory: lungs clear, normal breath sounds, no respiratory distress, no accessory muscle use Cardiovascular/Chest: normal peripheral pulses, regular rate, rhythm, no edema Peripheral Pulses: radial,right: 2+, radial,left: 2+, dorsalis pedis,right: 2+, dorsalis pedis,left: 2+ Gastrointestinal/Abdominal: non tender, soft Back Exam: normal inspection, no CVA tenderness Extremity: normal range of motion, non-tender, normal inspection, no pedal edema , normal capillary refill Neurologic: bean sorter II-XII nml as tested, alert, normal mood/affect, oriented x 3 Skin Exam: normal color Comments: Vital Signs - 24 hr 05/15/17 05/15/17 05/15/17 18:03 19:00 19:35 Temperature 98.2 F Pulse Rate [ 78 84 88 pulse ox] Respiratory 20 16 Rate Blood Pressure 182/74 170/70 159/60 [Left Arm] O2 Sat by Pulse 95 Oximetry 05/15/17 05/15/17 20:00 20:32 Temperature Pulse Rate [ 87 80 pulse ox] Respiratory 18 20 Rate Blood Pressure 144/67 157/58 [Left Arm] O2 Sat by Pulse 95 Oximetry Progress - Progress Progress: 05/15/17 20:47 The patient is a 81-year-old female presenting to emergency room with atypical chest pain that is most likely musculoskeletal in nature. Repeat cardiac enzymes are negative and her EKG is consistent with her EKG from 1 year ago. Pain is improving with treatment of musculoskeletal pain. She does need to do some stretching exercises and she can take some ibuprofen as needed to help relieve reduce some pain. topical heat may prove beneficial. Chest x-ray does appear benign. The patient does have a mildly elevated BNP which may be due to her blood pressure being elevated. She does need to keep a blood pressure log at home and take this to her primary care doctor. She may need to be increased somewhat on her blood pressure medications. Additionally she does appear to have a small urinary tract infection. She is receiving a dose of Rocephin here tonight and is going to be placed on Keflex 3 times daily for 5 days. She needs to follow-up with her primary care doctor in the next couple of days for a repeat urinalysis to make sure that it is clearing and she is not having any significant further chest pains. ER warnings were given for any worsening. - Results/Orders Results/Orders: chest x-ray shows no evidence of any fluid overload pneumothorax or significant infiltrate. EKG is consistent with the EKG from 1 year ago with the exception of a few PVCs. [place] is mildly to the right. No acute ST segment changes concerning for ischemia. QT interval is within normal limits. Laboratory Tests 05/15/17 05/15/17 05/15/17 18:09 18:12 18:12 WBC 8.2 RBC 3.98 L Hgb 12.2 Hct 35.1 L MCV 88.2 MCH 30.6 MCHC 34.8 RDW 12.8 Plt Count 335 MPV 6.7 L Absolute Neuts (auto) 6.50 Absolute Lymphs (auto) 0.90 L Absolute Monos (auto) 0.80 Absolute Eos (auto) 0.10 Absolute Basos (auto) 0.00 Neutrophils % 78.4 H Lymphocytes % 10.8 L Monocytes % 9.4 H Eosinophils % 1.0 Basophils % 0.4 PT INR PTT (SP) Sodium Potassium Chloride Carbon Dioxide Anion Gap BUN Creatinine BUN/Creatinine Ratio POC Glucose 102 Random Glucose Serum Osmolality Calcium Magnesium 1.9 Total Bilirubin AST ALT Alkaline Phosphatase Creatine Kinase 75 CK-MB (CK-2) 1.9 CK-MB (CK-2) % Not Reportable Troponin I < 0.02 B-Natriuretic Peptide 572.0 H* Serum Total Protein Albumin Globulin Albumin/Globulin Ratio Urine Color Urine Appearance Urine pH Ur Specific [place] Urine Protein Urine Glucose (UA) Urine Ketones Urine Blood Urine Nitrite Urine Bilirubin Urine Urobilinogen Ur Leukocyte Esterase Urine RBC Urine WBC Ur Epithelial Cells Urine Bacteria 05/15/17 05/15/17 05/15/17 18:12 18:34 19:53 WBC RBC Hgb Hct MCV MCH MCHC RDW Plt Count MPV Absolute Neuts (auto) Absolute Lymphs (auto) Absolute Monos (auto) Absolute Eos (auto) Absolute Basos (auto) Neutrophils % Lymphocytes % Monocytes % Eosinophils % Basophils % PT 12.0 INR 1.060 PTT (SP) 26.5 Sodium 132 L Potassium 4.1 Chloride 98 L Carbon Dioxide 28 Anion Gap 10.1 L BUN 21 H Creatinine 0.80 BUN/Creatinine Ratio 26.3 H POC Glucose Random Glucose 92 Serum Osmolality 267.1 L Calcium 8.5 Magnesium Total Bilirubin 0.3 AST 15 ALT 12 Alkaline Phosphatase 73 Creatine Kinase CK-MB (CK-2) CK-MB (CK-2) % Troponin I B-Natriuretic Peptide Serum Total Protein 6.6 Albumin 3.4 Globulin 3.2 Albumin/Globulin Ratio 1.1 Urine Color Yellow Urine Appearance Sl cloudy Urine pH 7.0 Ur Specific [place] 1.020 Urine Protein 30 Urine Glucose (UA) Negative Urine Ketones Negative Urine Blood Moderate H Urine Nitrite Positive H Urine Bilirubin Negative Urine Urobilinogen 0.2 Ur Leukocyte Esterase Small H Urine RBC 10-20 H Urine WBC 30-40 H Ur Epithelial Cells 0-1 Urine Bacteria 3+ H 05/15/17 20:10 WBC RBC Hgb Hct MCV MCH MCHC RDW Plt Count MPV Absolute Neuts (auto) Absolute Lymphs (auto) Absolute Monos (auto) Absolute Eos (auto) Absolute Basos (auto) Neutrophils % Lymphocytes % Monocytes % Eosinophils % Basophils % PT INR PTT (SP) Sodium Potassium Chloride Carbon Dioxide Anion Gap BUN Creatinine BUN/Creatinine Ratio POC Glucose Random Glucose Serum Osmolality Calcium Magnesium Total Bilirubin AST ALT Alkaline Phosphatase Creatine Kinase 64 CK-MB (CK-2) 2.4 CK-MB (CK-2) % Not Reportable Troponin I 0.02 B-Natriuretic Peptide Serum Total Protein Albumin Globulin Albumin/Globulin Ratio Urine Color Urine Appearance Urine pH Ur Specific [place] Urine Protein Urine Glucose (UA) Urine Ketones Urine Blood Urine Nitrite Urine Bilirubin Urine Urobilinogen Ur Leukocyte Esterase Urine RBC Urine WBC Ur Epithelial Cells Urine Bacteria Departure - Departure Clinical Impression: Musculoskeletal chest pain Urinary tract infection Qualifiers: Urinary tract infection type: acute cystitis Hematuria presence: without hematuria Qualified Code(s): N30.00 - Acute cystitis without hematuria Disposition: Discharge to Home or Self Care Condition: Fair Departure Forms: ED Discharge - Pt. Copy, Patient Portal Self Enrollment Diet: regular diet Activity: increase activity as tolerated Referrals: True Alvarez III, MD [Primary Care Provider] - 1-5 Days Prescriptions: Cephalexin Monohydrate [Keflex] 500 mg PO Q8H #15 cap Home Medications: Ambulatory Orders Citalopram Hydrobromide 20 mg PO DAILY 01/17/16 Melatonin 5 mg PO BEDTIME 01/17/16 Oxybutynin Chloride 5 mg PO BID 01/17/16 Aspirin [Ecotrin] 81 mg PO DAILY 11/18/16 Atorvastatin Calcium [Lipitor] 10 mg PO BEDTIME 11/18/16 Carvedilol [Coreg] 25 mg PO BID 11/18/16 Diclofenac Sodium [Voltaren] 75 mg PO BEDTIME 11/18/16 Irbesartan 150 mg PO DAILY 11/18/16 Pantoprazole Sodium 40 mg PO BID 11/18/16 Chlorhexidine Mouth Rinse [Peridex] 15 ml SWSP BID PRN 11/23/16 Ferrous Gluconate [Fergon] 325 mg PO BIDFD 11/23/16 HYDROcodone 5MG/APAP 325MG [[place] 5/325] 1 ea PO .Q4H #30 tab 12/03/16 Rivaroxaban [Xarelto] 10 mg PO DAILY #19 12/03/16 Cephalexin Monohydrate [Keflex] 500 mg PO Q8H #15 cap 05/15/17 Additional Instructions: The patient is a 81-year-old female presenting to emergency room with atypical chest pain that is most likely musculoskeletal in nature. Repeat cardiac enzymes are negative and her EKG is consistent with her EKG from 1 year ago. Pain is improving with treatment of musculoskeletal pain. She does need to do some stretching exercises and she can take some ibuprofen as needed to help relieve reduce some pain. topical heat may prove beneficial. Chest x-ray does appear benign. The patient does have a mildly elevated BNP which may be due to her blood pressure being elevated. She does need to keep a blood pressure log at home and take this to her primary care doctor. She may need to be increased somewhat on her blood pressure medications. Additionally she does appear to have a small urinary tract infection. She is receiving a dose of Rocephin here tonight and is going to be placed on Keflex 3 times daily for 5 days. She needs to follow-up with her primary care doctor in the next couple of days for a repeat urinalysis to make sure that it is clearing and she is not having any significant further chest pains. ER warnings were given for any worsening.
[2017-05-15] MEDS ORDERED: LIDOCAINE 1% 10 ML VIAL INJ ONE (21:00)
[2017-05-15 21:05] VITALS: BP 174/81; O2SAT 93
== END 2017-05-15 21:18 | disposition home or self-care (01) ==
LOC: ER 17:48
DX: R07.89 Other chest pain (principal); N30.00 Acute cystitis without hematuria; I10 Essential (primary) hypertension; Z79.82 Long term (current) use of aspirin; Z79.899 Other long term (current) drug therapy
CPT/HCPCS: 36415; 36416; 71010; 80053; 81001; 82550; 82553; 82948; 83735; 83880; 84484; 85025; 85610; 85730; 87086; 93005; J0696

== ENCOUNTER → 2017-06-28 | Outpatient (CLI) | payer MEDICARE, OTHER ==
--- NOTE | 2017-06-29 04:01 | CT ---
EXAM DATE: 06/28/2017 10:01 AM [facility]. PROCEDURE: CT SINUSES WITHOUT IV CONTRAST. INDICATION: CHRONIC MAXILLARY SINUSITIS. COMPARISON: None. TECHNIQUE: Axial CT images of the face were obtained without intravenous contrast. Coronal and sagittal reformatted images are provided. This exam was performed according to our departmental dose-optimization program which includes use of Automated Exposure Control, adjustment of the mA and/or kV according to patient size and/or use of iterative reconstruction technique. FINDINGS: The frontal sinuses and frontal sinus drainage pathways are well aerated. The ethmoid and sphenoid sinuses are clear. The sphenoethmoidal recesses as well as the sphenoid ostia are patent. The maxillary sinuses are clear. The maxillary sinus drainage pathways demonstrate no obstruction or mass. Unremarkable nasal cavity and nasopharynx. The partially visualized intracranial contents are unremarkable. Normal orbits. Mastoid air cells are clear. Unremarkable parotid glands and partially visualized muscles of mastication. IMPRESSION: The paranasal sinuses are well aerated. No outflow tract obstruction. Electronically signed by: Angel Israel MD 06/29/2017 4:00 AM [facility]
== END | disposition home or self-care (01) ==
LOC: CT 10:12
PROVIDERS: ATTEND Otolaryngology Otolaryngology/Facial Plastic Surgery
DX: J32.0 Chronic maxillary sinusitis (principal)

== ENCOUNTER → 2017-07-20 | Outpatient (CLI) | payer MEDICARE, OTHER ==
--- NOTE | 2017-07-21 13:41 | RAD ---
EXAM DESCRIPTION: Chest,2 Views CLINICAL HISTORY: COUGH COMPARISON: Chest radiograph dated May 15, 2017 FINDINGS: Frontal and lateral views of the chest. Cardiac silhouette shows borderline cardiomegaly without congestive failure. Calcific atherosclerosis and tortuosity noted of the aortic arch. Lung volumes are hyperinflated, compatible with COPD changes. Increased opacification in the left retrocardiac region may represent atelectasis versus infiltrate. Right lung is clear. No significant pleural effusion. No pneumothorax. Degenerative changes of the thoracic spine. Cholecystectomy clips in the right upper abdominal quadrant. IMPRESSION: 1. Increased opacification in the left retrocardiac region may represent atelectasis versus infiltrate. Please correlate clinically. 2. Other findings as above. Electronically signed by: True Guallpa MD 07/21/2017 1:40 PM [facility]
== END | disposition home or self-care (01) ==
LOC: RAD 11:34
PROVIDERS: ATTEND Otolaryngology Otolaryngology/Facial Plastic Surgery
DX: R05 Cough (principal)

== ENCOUNTER 2017-08-10 17:59 | Emergency (ER) | payer MEDICARE, OTHER ==
--- NOTE | 2017-08-10 19:15 | RAD ---
PROCEDURE: Hip Bilateral Clinical History: fall Indication: Same as above Comparison: X-ray of the pelvis done on the same day. Technique: 4.0 views of the right and left hip. Findings: There is no evidence of acute fractures or dislocations involving the bones of the right and left hip joint and the adjacent pelvic bones. There is intact bilateral hip arthroplasty. Impression: Intact bilateral hip arthroplasty without any acute bony trauma involving the right or the left hip Location of Interpretation: Teleradiology Electronically signed by: Adelso Steward MD 08/10/2017 7:14 PM [facility] Workstation: [email or web address]
--- NOTE | 2017-08-10 19:16 | RAD ---
PROCEDURE: Pelvis Clinical History: fall Indication: Same as above Comparison: X-ray of the bilateral hip joints done on the same day . Technique: Single frontal view of the pelvis Findings: There is no evidence of acute fractures or dislocations involving the bones of the pelvis including the bilateral hip joints, the visualized proximal femora and the sacrum. There is intact bilateral hip arthroplasty Impression: Negative for acute findings in the pelvis Place of interpretation: [id number]. Electronically signed by: Adelso Steward MD 08/10/2017 7:15 PM [facility] Workstation: [id number]
--- NOTE | 2017-08-10 19:38 | ED.PDOC ---
History of Present Illness - General Chief Complaint: Trauma Stated Complaint: right hip pain Time Seen by Provider: 08/10/17 18:06 Source: patient, EMS notes reviewed Exam Limitations: no limitations - History of Present Illness Initial Comments: Fatemeh Solis 81 y/o female brought by ems after falling to the ground while carrying walker to the car landing on her lower back and buttocks.Denies any other injuries.Had dull ache on hip and pelvis after incident,denies blurry vision,remembers incident Occurred: just prior to arrival Severity: moderate Injuries/Pain Location: back, pelvis Reason for Fall: slipped Loss of Consciousness: no loss of consciousness Improving Factors: rest Worsening Factors: movement Associated Symptoms (Fall): other - see hpi Allergies/Adverse Reactions: Allergies NO KNOWN ALLERGY Allergy (Verified 05/15/17 18:06) Home Medications: Ambulatory Orders Citalopram Hydrobromide 20 mg PO DAILY 01/17/16 Melatonin 5 mg PO BEDTIME 01/17/16 Oxybutynin Chloride 5 mg PO BID 01/17/16 Aspirin [Ecotrin] 81 mg PO DAILY 11/18/16 Atorvastatin Calcium [Lipitor] 10 mg PO BEDTIME 11/18/16 Carvedilol [Coreg] 25 mg PO BID 11/18/16 Diclofenac Sodium [Voltaren] 75 mg PO BEDTIME 11/18/16 Irbesartan 150 mg PO DAILY 11/18/16 Pantoprazole Sodium 40 mg PO BID 11/18/16 Chlorhexidine Mouth Rinse [Peridex] 15 ml SWSP BID PRN 11/23/16 Ferrous Gluconate [Fergon] 325 mg PO BIDFD 11/23/16 HYDROcodone 5MG/APAP 325MG [[place] 5/325] 1 ea PO .Q4H #30 tab 12/03/16 Rivaroxaban [Xarelto] 10 mg PO DAILY #19 12/03/16 Cephalexin Monohydrate [Keflex] 500 mg PO Q8H #15 cap 05/15/17 Review of Systems - Review of Systems Constitutional: States: no symptoms reported EENTM: States: no symptoms reported Respiratory: States: no symptoms reported Cardiology: States: no symptoms reported Gastrointestinal/Abdominal: States: no symptoms reported Musculoskeletal: States: see HPI All other Systems: Reviewed and Negative, No Change from Baseline Past Medical History (General) - Patient Medical History Hx Seizures: No Hx Stroke: No Hx Dementia: No Hx Asthma: No Hx of COPD: No - CPAP Hx Cardiac Disorders: Yes Hx Congestive Heart Failure: No Hx Pacemaker: No Hx Hypertension: Yes Hx Thyroid Disease: No Hx Diabetes: No Hx Gastroesophageal Reflux: Yes Hx Renal Disease: No Hx Cancer: No Hx of HIV: No Hx Hepatitis C: No Hx MRSA: No MRSA Source:: nose Surgical History: appendectomy, cholecystectomy, other - Vaccination History Hx Tetanus, Diphtheria Vaccination: No Hx Influenza Vaccination: Yes Hx Pneumococcal Vaccination: Yes - Social History Hx Tobacco Use: No Hx Chewing Tobacco Use: No Hx Alcohol Use: No Hx Substance Use: No Hx Substance Use Treatment: No Hx Depression: No Hx Physical Abuse: No Hx Emotional Abuse: No Hx Suspected Abuse: No - Activities of Daily Living Patient Lives Alone: No Grooming Ability: Standby Assistance Toileting Ability: Independent - Female History Patient : No Physical Exam - Physical Exam General Appearance: Alert, Comfortable, No apparent distress Head Injury: no evidence of injury Eye Exam: bilateral normal ENT Exam: hearing grossly normal, no evidence of ENT injury, no dental injury Peripheral Pulses: radial,right: 2+, radial,left: 2+ Cardiovascular/Respiratory: regular rate, rhythm, no M/R/G, normal peripheral pulses, normal breath sounds Gastrointestinal/Abdominal: normal bowel sounds, non tender, soft, no organomegaly Back Exam: no CVA tenderness, no vertebral tenderness Extremity Exam: pelvis stable, bony-point tenderness - both hips, tenderness - both hips Neurologic: no motor/sensory deficits, alert, oriented x 3 Skin Exam: normal color - Anny Coma Score Best Eye Response ([place]): (4) open spontaneously Best Verbal Response ([place]): (5) oriented Best Motor Response ([place]): (6) obeys commands [place] Total: 15 Progress - Progress Progress: 08/10/17 19:46 Last Vital Signs Temp 98.4 F 08/10/17 19:06 Pulse 64 08/10/17 19:06 Resp 20 08/10/17 19:06 BP 172/79 08/10/17 19:06 Pulse Ox 94 L 08/10/17 19:06 - EKG/XRAY/CT XRAY: pelvis - no fractures Departure - Departure Clinical Impression: Pain of both hip joints Fall Qualifiers: Encounter type: initial encounter Qualified Code(s): W19.XXXA - Unspecified fall, initial encounter Contusion of pelvis Qualifiers: Encounter type: initial encounter Qualified Code(s): S30.0XXA - Contusion of lower back and pelvis, initial encounter Time of Disposition: 19:52 Disposition: Discharge to Home or Self Care Condition: Fair Departure Forms: ED Discharge - Pt. Copy, Patient Portal Self Enrollment Instructions: DI for Contusion, Contusion Referrals: True Alvarez III, MD [Primary Care Provider] - 1-2 Weeks Home Medications: Ambulatory Orders Citalopram Hydrobromide 20 mg PO DAILY 01/17/16 Melatonin 5 mg PO BEDTIME 01/17/16 Oxybutynin Chloride 5 mg PO BID 01/17/16 Aspirin [Ecotrin] 81 mg PO DAILY 11/18/16 Atorvastatin Calcium [Lipitor] 10 mg PO BEDTIME 11/18/16 Carvedilol [Coreg] 25 mg PO BID 11/18/16 Diclofenac Sodium [Voltaren] 75 mg PO BEDTIME 11/18/16 Irbesartan 150 mg PO DAILY 11/18/16 Pantoprazole Sodium 40 mg PO BID 11/18/16 Chlorhexidine Mouth Rinse [Peridex] 15 ml SWSP BID PRN 11/23/16 Ferrous Gluconate [Fergon] 325 mg PO BIDFD 11/23/16 HYDROcodone 5MG/APAP 325MG [[place] 5/325] 1 ea PO .Q4H #30 tab 12/03/16 Rivaroxaban [Xarelto] 10 mg PO DAILY #19 12/03/16 Cephalexin Monohydrate [Keflex] 500 mg PO Q8H #15 cap 05/15/17 Additional Instructions: May take Tylenol 500 mg 1-2 tablets every 6 hours for pain
[2017-08-10 20:52] VITALS: BP 155/47; TEMP 98.3; O2SAT 95
== END 2017-08-10 20:35 | disposition home or self-care (01) ==
LOC: ER 17:59
DX: M25.551 Pain in right hip (principal); M25.552 Pain in left hip; S30.0XXA Contusion of lower back and pelvis, initial encounter; I10 Essential (primary) hypertension; K21.9 Gastro-esophageal reflux disease without esophagitis; W19.XXXA Unspecified fall, initial encounter; Y92.89 Other specified places as the place of occurrence of the external cause

== ENCOUNTER 2017-09-02 17:54 | Emergency (ER) | payer MEDICARE, OTHER ==
[2017-09-02 18:16] VITALS: BP 188/72; TEMP 98.8; O2SAT 96
--- NOTE | 2017-09-02 18:36 | ED.PDOC ---
History of Present Illness - General Chief Complaint: General Stated Complaint: left great toe throbbing/red Time Seen by Provider: 09/02/17 18:33 Source: patient Exam Limitations: no limitations Additional Information: PT HAD PARTIAL NAIL REMOVAL FOR INGROWN TOENAIL. C/O INCREASING REDNESS AND PAIN. PT HAS HAD 2 DOSES OF ZITHROMAX FOR SORETHROAT. - History of Present Illness Timing/Duration: other - 2-3 DAYS Severity: mild Improving Factors: nothing Worsening Factors: nothing Associated Symptoms: other - PAIN Allergies/Adverse Reactions: Allergies NO KNOWN ALLERGY Allergy (Verified 05/15/17 18:06) Home Medications: Ambulatory Orders Citalopram Hydrobromide 20 mg PO DAILY 01/17/16 Melatonin 10 mg PO BEDTIME 01/17/16 Oxybutynin Chloride 5 mg PO BID 01/17/16 Aspirin [Ecotrin] 81 mg PO DAILY 11/18/16 Atorvastatin Calcium [Lipitor] 10 mg PO BEDTIME 11/18/16 Carvedilol [Coreg] 25 mg PO BID 11/18/16 Diclofenac Sodium [Voltaren] 75 mg PO BEDTIME 11/18/16 Irbesartan 150 mg PO BID 11/18/16 Pantoprazole Sodium 40 mg PO BID 11/18/16 Ferrous Gluconate [Fergon] 325 mg PO BEDTIME 09/02/17 Omeprazole [Prilosec] 40 mg PO DAILY 09/02/17 Oseltamivir Capsule [Tamiflu] 75 mg PO BID 5 Days #10 capsule 09/02/17 Spironolactone 25 mg PO DAILY 09/02/17 Sulfamethoxazole-Trimethoprim [Bactrim Ds 800-160 mg] 1 tab PO BID #20 tab 09/02 Review of Systems - Review of Systems Constitutional: Denies: chills, fever Gastrointestinal/Abdominal: Denies: nausea, vomiting Musculoskeletal: Denies: joint pain, joint swelling Skin: States: other - REDNESS Neurological: States: no symptoms reported Hematologic/Lymphatic: Denies: swollen glands Past Medical History (General) - Patient Medical History Hx Seizures: No Hx Stroke: No Hx Dementia: No Hx Asthma: No Hx of COPD: No - CPAP Hx Cardiac Disorders: Yes Hx Congestive Heart Failure: No Hx Pacemaker: No Hx Hypertension: Yes Hx Thyroid Disease: No Hx Diabetes: No Hx Gastroesophageal Reflux: Yes Hx Renal Disease: No Hx Cancer: No Hx of HIV: No Hx Hepatitis C: No Hx MRSA: No MRSA Source:: nose Surgical History: cholecystectomy - Vaccination History Hx Tetanus, Diphtheria Vaccination: No Hx Influenza Vaccination: Yes Hx Pneumococcal Vaccination: Yes - Social History Hx Tobacco Use: No Hx Chewing Tobacco Use: No Hx Alcohol Use: No Hx Substance Use: No Hx Substance Use Treatment: No Hx Depression: No Hx Physical Abuse: No Hx Emotional Abuse: No Hx Suspected Abuse: No - Female History Patient : No Family Medical History - Family History Mother Family History: No Known Living Status: Hx Family Cancer: Yes Father Living Status: Hx Family Hypertension: Yes Hx Cardiac Disease: Yes Physical Exam - Physical Exam General Appearance: Alert, Comfortable, No apparent distress Eye Exam: bilateral normal Ears, Nose, Throat: hearing grossly normal, normal ENT inspection Peripheral Pulses: dorsalis pedis,left: 2+, posterior tibialis,left: 2+ Extremity: normal range of motion, non-tender, other - MILD REDNESS TO TIP OF L GREAT TOE. MEDIAL AND LATERAL ASPECT OF NAIL REMOVED, NAILBED CLEAN AND DRY, NO INDURATION, NO FLUCTUENCE. GOOD CAP REFILL Neurologic: alert, normal mood/affect Skin Exam: warm/dry, other - REDNESS NOTED ABOVE, NO REDNESS TO FOOT, NO LYMPHANGITIS Lymphatic: no adenopathy Departure - Departure Clinical Impression: Cellulitis of toe Qualifiers: Laterality: left Qualified Code(s): L03.032 - Cellulitis of left toe Hypertension Qualifiers: Hypertension type: essential hypertension Qualified Code(s): I10 - Essential ( primary) hypertension ICD-10 Supporting Text: S/P PARTIAL NAIL REMOVAL L GREAT TOE Time of Disposition: 18:36 Disposition: Discharge to Home or Self Care Condition: Excellent Departure Forms: ED Discharge - Pt. Copy, Patient Portal Self Enrollment Instructions: Cellulitis Referrals: True Alvarez III, MD [Primary Care Provider] - 1-2 Weeks Prescriptions: Oseltamivir Capsule [Tamiflu] 75 mg PO BID 5 Days #10 capsule Sulfamethoxazole-Trimethoprim [Bactrim Ds 800-160 mg] 1 tab PO BID #20 tab Home Medications: Ambulatory Orders Citalopram Hydrobromide 20 mg PO DAILY 01/17/16 Melatonin 10 mg PO BEDTIME 01/17/16 Oxybutynin Chloride 5 mg PO BID 01/17/16 Aspirin [Ecotrin] 81 mg PO DAILY 11/18/16 Atorvastatin Calcium [Lipitor] 10 mg PO BEDTIME 11/18/16 Carvedilol [Coreg] 25 mg PO BID 11/18/16 Diclofenac Sodium [Voltaren] 75 mg PO BEDTIME 11/18/16 Irbesartan 150 mg PO BID 11/18/16 Pantoprazole Sodium 40 mg PO BID 11/18/16 Ferrous Gluconate [Fergon] 325 mg PO BEDTIME 09/02/17 Omeprazole [Prilosec] 40 mg PO DAILY 09/02/17 Oseltamivir Capsule [Tamiflu] 75 mg PO BID 5 Days #10 capsule 09/02/17 Spironolactone 25 mg PO DAILY 09/02/17 Sulfamethoxazole-Trimethoprim [Bactrim Ds 800-160 mg] 1 tab PO BID #20 tab 09/02 Additional Instructions: SOAK FOOT 3-4 TIMES DAILY IN WARM WATER WITH BETADINE. PAT DRY. KEEP NAIL DRY AND COVERED. FOLLOW UP WITH YOUR DOCTOR MONDAY. RETURN HERE IF NEW SYMPTOMS DEVELOP, TOE WORSENS, OR FOR CONCERNS.
[2017-09-02] MEDS ORDERED: POVIDONE IODINE 10 % 15 ML UD TOP ONE (18:44)
== END 2017-09-02 18:52 | disposition home or self-care (01) ==
LOC: ER 17:54
DX: S76.012A Strain of muscle, fascia and tendon of left hip, initial encounter (principal); I10 Essential (primary) hypertension; W01.0XXA Fall on same level from slipping, tripping and stumbling without subsequent striking against object, initial encounter; Y92.009 Unspecified place in unspecified non-institutional (private) residence as the place of occurrence of the external cause

== ENCOUNTER 2017-09-06 01:40 | Emergency (ER) | payer MEDICARE, OTHER ==
[2017-09-06 01:55] VITALS: TEMP 98.8
--- NOTE | 2017-09-06 02:22 | RAD ---
Examination: XR HIP 2 OR MORE VIEWS dated 09/06/2017 1:59 AM STRANNER History: pain after falling monday Comparison: 08/10/2017 Technique: Two views of the left hip FINDINGS: Left hip arthroplasty without obvious hardware complication. No acute fracture or dislocation. IMPRESSION: Left hip arthroplasty without obvious hardware complication. Electronically signed by: Angel Israel MD 09/06/2017 2:21 AM STRANNER
--- NOTE | 2017-09-06 02:23 | RAD ---
Examination: XR PELVIS 1-2 VIEWS dated 09/06/2017 1:59 AM STERILISATION TECHNICIAN History: pain after falling monday Comparison: 08/10/2017 Technique: One view of the pelvis FINDINGS: Bilateral hip arthroplasties without dislocation. No periprosthetic fracture. Pelvic ring appears intact. Symmetric SI joints. IMPRESSION: Bilateral hip arthroplasties without acute findings. Electronically signed by: Angel Israel MD 09/06/2017 2:22 AM STERILISATION TECHNICIAN
[2017-09-06] MEDS ORDERED: HYDROcodone 5MG/APAP 325MG 1 EA TAB PO ONE (02:33)
[2017-09-06] MEDS ORDERED: KETOROLAC TROMETHAMINE INJ 30 MG/ML VIAL IM ONE (02:33)
--- NOTE | 2017-09-06 02:35 | ED.PDOC ---
History of Present Illness - General Chief Complaint: Lower Extremity Injury Stated Complaint: L hip pain Time Seen by Provider: 09/06/17 02:25 Source: patient Exam Limitations: no limitations - History of Present Illness Initial Comments: the patient is an 81-year-old female presenting to emergency room secondary to left hip pain for last 4 days. The patient slipped and fell at home 4 days ago and landed on her posterior lateral left hip. 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 She has been ambulatory since that time with her walker. She does normally use a walker. She appears to be neurovascularly at her baseline. No other injuries from the fall. She has no pain over the pelvis when pressure is placed over the iliac crests or symphysis pubis. There is no obvious pelvic bruising at this time. She does have tenderness to palpation over the posterior lateral hip only. I feel no swelling or deformity there. Operative scars present. Severity: moderate Improving Factors: nothing Worsening Factors: movement Associated Symptoms: denies symptoms Allergies/Adverse Reactions: Allergies NO KNOWN ALLERGY Allergy (Verified 05/15/17 18:06) Home Medications: Ambulatory Orders Citalopram Hydrobromide 20 mg PO DAILY 01/17/16 Melatonin 10 mg PO BEDTIME 01/17/16 Oxybutynin Chloride 5 mg PO BID 01/17/16 Aspirin [Ecotrin] 81 mg PO DAILY 11/18/16 Atorvastatin Calcium [Lipitor] 10 mg PO BEDTIME 11/18/16 Carvedilol [Coreg] 25 mg PO BID 11/18/16 Diclofenac Sodium [Voltaren] 75 mg PO BEDTIME 11/18/16 Irbesartan 150 mg PO BID 11/18/16 Pantoprazole Sodium 40 mg PO BID 11/18/16 Ferrous Gluconate [Fergon] 325 mg PO BEDTIME 09/02/17 Omeprazole [Prilosec] 40 mg PO DAILY 09/02/17 Oseltamivir Capsule [Tamiflu] 75 mg PO BID 5 Days #10 capsule 09/02/17 Spironolactone 25 mg PO DAILY 09/02/17 Sulfamethoxazole-Trimethoprim [Bactrim Ds 800-160 mg] 1 tab PO BID #20 tab 09/02 [id number] [Fioricet] 1 ea PO Q8H PRN #21 tab 09/06/17 Hydrochlorothiazide 25 mg PO 09/06/17 Review of Systems - Review of Systems Constitutional: States: no symptoms reported EENTM: States: no symptoms reported Respiratory: States: no symptoms reported Cardiology: States: no symptoms reported Gastrointestinal/Abdominal: States: no symptoms reported Genitourinary: States: no symptoms reported Musculoskeletal: States: see HPI Skin: States: no symptoms reported Neurological: States: no symptoms reported Endocrine: States: no symptoms reported All other Systems: No Change from Baseline Past Medical History (General) - Patient Medical History Hx Seizures: No Hx Stroke: No Hx Dementia: No Hx Asthma: No Hx of COPD: No - CPAP Hx Cardiac Disorders: Yes Hx Congestive Heart Failure: No Hx Pacemaker: No Hx Hypertension: Yes Hx Thyroid Disease: No Hx Diabetes: No Hx Gastroesophageal Reflux: Yes Hx Renal Disease: No Hx Cancer: No Hx of HIV: No Hx Hepatitis C: No Hx MRSA: No MRSA Source:: nose Surgical History: cholecystectomy - Vaccination History Hx Tetanus, Diphtheria Vaccination: No Hx Influenza Vaccination: Yes Hx Pneumococcal Vaccination: Yes - Social History Hx Tobacco Use: No Hx Chewing Tobacco Use: No Hx Alcohol Use: No Hx Substance Use: No Hx Substance Use Treatment: No Hx Depression: No Hx Physical Abuse: No Hx Emotional Abuse: No Hx Suspected Abuse: No - Female History Patient : No Family Medical History - Family History Mother Family History: No Known Living Status: Hx Family Cancer: Yes Father Living Status: Hx Family Hypertension: Yes Hx Cardiac Disease: Yes Physical Exam - Physical Exam General Appearance: Alert, Anxious, No apparent distress Eye Exam: bilateral normal Ears, Nose, Throat: hearing grossly normal, normal pharynx Neck: full range of motion, supple Respiratory: no respiratory distress, no accessory muscle use Cardiovascular/Chest: normal peripheral pulses, no edema Peripheral Pulses: dorsalis pedis,right: 2+, dorsalis pedis,left: 2+, posterior tibialis,right: 2+, posterior tibialis,left: 2+ Gastrointestinal/Abdominal: non tender, soft, other - dayan. Stable Back Exam: normal inspection, no CVA tenderness Extremity: normal range of motion - given chronic limitations, no pedal edema, no calf tenderness, normal capillary refill, other - see history of present illness Neurologic: shirt hemmer II-XII nml as tested, alert, normal mood/affect, oriented x 3 Skin Exam: normal color Comments: Vital Signs - 8 hr 09/06/17 09/06/17 01:47 02:14 Temperature 98.8 F Pulse Rate [ 72 68 Left] Respiratory 18 18 Rate Blood Pressure 200/77 177/61 [Left Arm] Progress - Progress Progress: 09/06/17 02:36 the patient is an 81-year-old female presenting 4 days after a fall at home with persistent left posterior hip pain. She needs to continue ambulating with her walker and ambulate carefully to prevent additional falls. If she feels likes she is getting weaker then she needs to contact her primary care doctor's office to get set up for physical therapy. A heat pad may prove beneficial. Motrin 200 mg 3 times a day for the next 3 or 4 days may also help. She'll be written for Fioricet for 3 times daily use as needed for additional pain control. ER warnings were given for any significant worsening. X-rays of the left hip and pelvis show no evidence of any acute fracture or dislocation. At this time the diagnosis is a left hip strain. Keep follow-up with her primary care doctor early next week. Departure - Departure Clinical Impression: Strain of left hip Qualifiers: Encounter type: initial encounter Qualified Code(s): S76.012A - Strain of muscle, fascia and tendon of left hip, initial encounter Disposition: Discharge to Home or Self Care Condition: Fair Departure Forms: ED Discharge - Pt. Copy, Patient Portal Self Enrollment Diet: regular diet Activity: increase activity as tolerated Referrals: True Alvarez III, MD [Primary Care Provider] - 1-5 Days Prescriptions: [id number]-Lftl-Flhlwomugi [Fioricet] 1 ea PO Q8H PRN #21 tab PRN Reason: Pain Home Medications: Ambulatory Orders Citalopram Hydrobromide 20 mg PO DAILY 01/17/16 Melatonin 10 mg PO BEDTIME 01/17/16 Oxybutynin Chloride 5 mg PO BID 01/17/16 Aspirin [Ecotrin] 81 mg PO DAILY 11/18/16 Atorvastatin Calcium [Lipitor] 10 mg PO BEDTIME 11/18/16 Carvedilol [Coreg] 25 mg PO BID 11/18/16 Diclofenac Sodium [Voltaren] 75 mg PO BEDTIME 11/18/16 Irbesartan 150 mg PO BID 11/18/16 Pantoprazole Sodium 40 mg PO BID 11/18/16 Ferrous Gluconate [Fergon] 325 mg PO BEDTIME 09/02/17 Omeprazole [Prilosec] 40 mg PO DAILY 09/02/17 Oseltamivir Capsule [Tamiflu] 75 mg PO BID 5 Days #10 capsule 09/02/17 Spironolactone 25 mg PO DAILY 09/02/17 Sulfamethoxazole-Trimethoprim [Bactrim Ds 800-160 mg] 1 tab PO BID #20 tab 09/02 Vxuritcvsllbb-[id number] [Fioricet] 1 ea PO Q8H PRN #21 tab 09/06/17 Hydrochlorothiazide 25 mg PO 09/06/17 Additional Instructions: the patient is an 81-year-old female presenting 4 days after a fall at home with persistent left posterior hip pain. She needs to continue ambulating with her walker and ambulate carefully to prevent additional falls. If she feels likes she is getting weaker then she needs to contact her primary care doctor's office to get set up for physical therapy. A heat pad may prove beneficial. Motrin 200 mg 3 times a day for the next 3 or 4 days may also help. She'll be written for Fioricet for 3 times daily use as needed for additional pain control. ER warnings were given for any significant worsening. X-rays of the left hip and pelvis show no evidence of any acute fracture or dislocation. At this time the diagnosis is a left hip strain. Keep follow-up with her primary care doctor early next week.
[2017-09-06 03:25] VITALS: BP 184/79
== END 2017-09-06 03:25 | disposition home or self-care (01) ==
LOC: ER 01:40
DX: S76.012A Strain of muscle, fascia and tendon of left hip, initial encounter (principal); I10 Essential (primary) hypertension; Z96.643 Presence of artificial hip joint, bilateral; Z79.899 Other long term (current) drug therapy; W01.0XXA Fall on same level from slipping, tripping and stumbling without subsequent striking against object, initial encounter; Y92.009 Unspecified place in unspecified non-institutional (private) residence as the place of occurrence of the external cause
CPT/HCPCS: 72170; 73502; J1885

== ENCOUNTER → 2018-04-03 | Outpatient (CLI) | payer MEDICARE, OTHER | LOC: GMAL 11:03 | PROVIDERS: ATTEND Family Medicine | DX: D51.3 Other dietary vitamin B12 deficiency anemia (principal); D64.9 Anemia, unspecified; R53.82 Chronic fatigue, unspecified; E55.9 Vitamin D deficiency, unspecified; E78.4 Other hyperlipidemia ==

== ENCOUNTER → 2018-05-14 | Outpatient (CLI) | payer MEDICARE, OTHER | LOC: GMAL 13:36 | PROVIDERS: ATTEND Family Medicine | DX: E03.8 Other specified hypothyroidism (principal) ==

== ENCOUNTER 2018-07-04 12:13 | Emergency (ER) | payer MEDICARE, OTHER ==
[2018-07-04 12:26] VITALS: TEMP 99.1; O2SAT 96
--- NOTE | 2018-07-04 13:02 | RAD ---
EXAM DESCRIPTION: Chest,1 View CLINICAL HISTORY: 82 years Female, edema COMPARISON: Chest radiograph 07/20/2017. TECHNIQUE: Single frontal view of the chest. IMPRESSION: Cardiac silhouette is normal in size. Aorta is partially calcified. Bilateral emphysematous changes. Redemonstrated mild elevation or eventration of the right hemidiaphragm. No focal or masslike consolidation appreciated. No pleural effusion or pneumothorax. Thoracic spondylosis. Electronically signed by: Ernesto Donaldson MD 07/04/2018 1:01 PM [facility]
--- NOTE | 2018-07-04 15:13 | ED.PDOC ---
History of Present Illness - General Chief Complaint: General Stated Complaint: Bilateral leg discomfort Time Seen by Provider: 07/04/18 12:21 Source: patient Exam Limitations: no limitations - History of Present Illness Initial Comments: the patient is a 82-year-old female presenting to the emergency room secondary to 1+ swelling to bilateral lower extremities for the last few months. The swelling is causing her significant pain. She is on several diuretics. She does not know of any history of any heart problems or kidney problems and no history of any liver failure. She has recently had any increase in her thyroid medication due to mild hypothyroidism. No fevers. No shortness of breath. No chest pain. No palpitations. No other evidence of any fluid overload. She does take diclofenac, citalopram and amlodipine which may be contributing to the swelling. She does have some compression stockings but has not been compliant with them. Timing/Duration: unsure Severity: moderate Improving Factors: nothing Worsening Factors: nothing Associated Symptoms: denies symptoms Allergies/Adverse Reactions: Allergies NO KNOWN ALLERGY Allergy (Verified 05/15/17 18:06) Home Medications: Ambulatory Orders Citalopram Hydrobromide 20 mg PO DAILY 01/17/16 Melatonin 10 mg PO BEDTIME 01/17/16 Oxybutynin Chloride 5 mg PO BID 01/17/16 Aspirin [Ecotrin] 81 mg PO DAILY 11/18/16 Atorvastatin Calcium [Lipitor] 10 mg PO BEDTIME 11/18/16 Carvedilol [Coreg] 25 mg PO BID 11/18/16 Diclofenac Sodium [Voltaren] 75 mg PO BEDTIME 11/18/16 Irbesartan 150 mg PO BID 11/18/16 Pantoprazole Sodium 40 mg PO BID 11/18/16 Ferrous Gluconate [Fergon] 325 mg PO BEDTIME 09/02/17 Omeprazole [Prilosec] 40 mg PO DAILY 09/02/17 Oseltamivir Capsule [Tamiflu] 75 mg PO BID 5 Days #10 capsule 09/02/17 Spironolactone 25 mg PO DAILY 09/02/17 Sulfamethoxazole-Trimethoprim [Bactrim Ds 800-160 mg] 1 tab PO BID #20 tab 09/02/17 Tqodnuanrrwnb-Udgn-Jtyqbjsjxj [Fioricet] 1 ea PO Q8H PRN #21 tab 09/06/17 Hydrochlorothiazide 25 mg PO 09/06/17 Review of Systems - Review of Systems Constitutional: States: no symptoms reported EENTM: States: no symptoms reported Respiratory: States: no symptoms reported Cardiology: States: no symptoms reported Gastrointestinal/Abdominal: States: no symptoms reported Genitourinary: States: no symptoms reported Musculoskeletal: States: no symptoms reported Skin: States: see HPI Neurological: States: no symptoms reported Endocrine: States: no symptoms reported All other Systems: No Change from Baseline Past Medical History (General) - Patient Medical History Hx Seizures: No Hx Stroke: No Hx Dementia: No Hx Asthma: No Hx of COPD: No - CPAP Hx Cardiac Disorders: Yes - Hypercholesterolemia; arrythmia Hx Congestive Heart Failure: Yes Hx Pacemaker: No Hx Hypertension: Yes Hx Thyroid Disease: Yes Hx Diabetes: No Hx Gastroesophageal Reflux: Yes Hx Renal Disease: No Hx Cancer: No Hx of HIV: No Hx Hepatitis C: No Hx MRSA: No MRSA Source:: nose Surgical History: appendectomy, cholecystectomy, tonsillectomy, other - Vaccination History Hx Tetanus, Diphtheria Vaccination: No Hx Influenza Vaccination: Yes - 2018 Hx Pneumococcal Vaccination: Yes - Social History Hx Tobacco Use: No Hx Chewing Tobacco Use: No Hx Alcohol Use: No Hx Substance Use: No Hx Substance Use Treatment: No Hx Depression: No Hx Physical Abuse: No Hx Emotional Abuse: No Hx Suspected Abuse: No - Female History Patient : No Family Medical History - Family History Mother Family History: No Known Living Status: Hx Family Cancer: Yes Father Living Status: Hx Family Hypertension: Yes Hx Cardiac Disease: Yes Physical Exam - Physical Exam General Appearance: Alert, Comfortable, No apparent distress Eye Exam: bilateral normal Ears, Nose, Throat: hearing grossly normal, normal ENT inspection, normal pharynx Neck: full range of motion, supple Respiratory: lungs clear, normal breath sounds, no respiratory distress, no accessory muscle use Cardiovascular/Chest: normal peripheral pulses, regular rate, rhythm Peripheral Pulses: radial,right: 2+, radial,left: 2+ Gastrointestinal/Abdominal: non tender, soft Rectal Exam: deferred Back Exam: no CVA tenderness, no vertebral tenderness Extremity: normal range of motion, non-tender, normal inspection, normal capillary refill, pedal edema - 1+ to bilateral lower extremities 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, alert, normal mood/affect, oriented x 3 Skin Exam: normal color Comments: Vital Signs - 24 hr 12/26/18 12:21 Temperature 99.1 F Pulse Rate [ 72 Left Radial] Respiratory 18 Rate Blood Pressure 130/68 [Left Arm] O2 Sat by Pulse 96 Oximetry Laboratory Tests 07/04/18 07/04/18 07/04/18 12:31 12:31 14:28 WBC 5.6 RBC 4.16 L Hgb 12.4 Hct 37.1 MCV 89.0 MCH 29.8 MCHC 33.5 RDW 12.8 Plt Count 297 MPV 7.3 L Absolute Neuts (auto) 3.50 Absolute Lymphs (auto) 1.50 Absolute Monos (auto) 0.50 Absolute Eos (auto) 0.10 Absolute Basos (auto) 0.00 Neutrophils % 62.5 Lymphocytes % 26.2 Monocytes % 9.6 H Eosinophils % 0.9 L Basophils % 0.8 Sodium 134 L Potassium 4.1 Chloride 101 Carbon Dioxide 25 Anion Gap 12.1 BUN 19 H Creatinine 0.80 BUN/Creatinine Ratio 23.8 H Random Glucose 94 Serum Osmolality 270.2 L Calcium 9.0 Magnesium 1.7 L Total Bilirubin 0.6 AST 18 ALT 11 Alkaline Phosphatase 47 Creatine Kinase 95 CK-MB (CK-2) 3.6 CK-MB (CK-2) % Not Reportable Troponin I < 0.02 B-Natriuretic Peptide 675.0 H* Serum Total Protein 6.9 Albumin 3.8 Globulin 3.1 Albumin/Globulin Ratio 1.2 TSH 10.34 H Urine Color Yellow Urine Appearance Clear Urine pH 7.0 Ur Specific [place] 1.020 Urine Protein Negative Urine Glucose (UA) Negative Urine Ketones Negative Urine Blood Trace-intact H Urine Nitrite Negative Urine Bilirubin Negative Urine Urobilinogen 0.2 Ur Leukocyte Esterase Negative Urine RBC 0-1 Urine WBC 0 Ur Epithelial Cells 0-1 Urine Bacteria 0 Progress - Progress Progress: 07/04/18 15:13 the patient is a 82-year-old female presenting to the emergency room secondary to long-standing 1+ edema to bilateral lower extremities causing her significant discomfort. There are possibly several sources for the edema. She is already on diuretics. I do recommend that she use some form of external compression supple such as compression stockings or Ildefonso wraps to help move off the fluid manually. This will likely help more than anything else with the pain. Additionally she does have a mildly elevated BNP when compared to her baseline. She does not clinically appear to be significantly fluid overloaded. This can be followed up with her primary care doctor. Additionally her TSH is still moderately elevated at 10 but improving from 17 at the check last month. he has a follow-up for this with her primary care doctor on 17 July. As likely is anything else for a source of the edema is several of her medications. The amlodipine, diclofenac and citalopram all can be associated with significant lower extremity edema. Blood pressure is well regulated so I am going to recommend that she reduce her amlodipine dose to 5 mg daily for a week and see if that significantly improves the situation. Additionally she is reporting some stomach upset which is likely due to the diclofenac. I recommend that she take this medication with food in the evening. ER warnings were given. follow-up with primary care doctor early next week and take this paper to the visit.. Departure - Departure Clinical Impression: Edema, peripheral Disposition: Discharge to Home or Self Care Condition: Fair Departure Forms: ED Discharge - Pt. Copy, Patient Portal Self Enrollment Instructions: Dependent Edema (DC) Diet: regular diet Activity: increase activity as tolerated Referrals: True Alvarez III, MD [Primary Care Provider] - 1-2 Weeks Home Medications: Ambulatory Orders Citalopram Hydrobromide 20 mg PO DAILY 01/17/16 Melatonin 10 mg PO BEDTIME 01/17/16 Oxybutynin Chloride 5 mg PO BID 01/17/16 Aspirin [Ecotrin] 81 mg PO DAILY 11/18/16 Atorvastatin Calcium [Lipitor] 10 mg PO BEDTIME 11/18/16 Carvedilol [Coreg] 25 mg PO BID 11/18/16 Diclofenac Sodium [Voltaren] 75 mg PO BEDTIME 11/18/16 Irbesartan 150 mg PO BID 11/18/16 Pantoprazole Sodium 40 mg PO BID 11/18/16 Ferrous Gluconate [Fergon] 325 mg PO BEDTIME 09/02/17 Omeprazole [Prilosec] 40 mg PO DAILY 09/02/17 Oseltamivir Capsule [Tamiflu] 75 mg PO BID 5 Days #10 capsule 09/02/17 Spironolactone 25 mg PO DAILY 09/02/17 Sulfamethoxazole-Trimethoprim [Bactrim Ds 800-160 mg] 1 tab PO BID #20 tab 09/02/17 Ksttrywflegnk-Ytaw-Tmtwujizpl [Fioricet] 1 ea PO Q8H PRN #21 tab 09/06/17 Hydrochlorothiazide 25 mg PO 09/06/17 Additional Instructions: the patient is a 82-year-old female presenting to the emergency room secondary to long-standing 1+ edema to bilateral lower extremities causing her significant discomfort. There are possibly several sources for the edema. She is already on diuretics. I do recommend that she use some form of external compression supple such as compression stockings or Ildefonso wraps to help move off the fluid manually. This will likely help more than anything else with the pain. She can also elevate her legs at night. Additionally she does have a mildly elevated BNP when compared to her baseline. She does not clinically appear to be significantly fluid overloaded. This can be followed up with her primary care doctor. Additionally her TSH is still moderately elevated at 10 but improving from 17 at the check last month. he has a follow-up for this with her primary care doctor on 17 July. As likely is anything else for a source of the edema is several of her medications. The amlodipine, diclofenac and citalopram all can be associated with significant lower extremity edema. Blood pressure is well regulated so I am going to recommend that she reduce her amlodipine dose to 5 mg daily for a week and see if that significantly improves the situation. Additionally she is reporting some stomach upset which is likely due to the diclofenac. I recommend that she take this medication with food in the evening. ER warnings were given. follow-up with primary care doctor early next week and take this paper to the visit..
[2018-07-04 16:37] VITALS: BP 132/62
== END 2018-07-04 16:35 | disposition home or self-care (01) ==
LOC: ER 12:13
DX: R60.0 Localized edema (principal); M79.604 Pain in right leg; M79.605 Pain in left leg; I11.0 Hypertensive heart disease with heart failure; E07.9 Disorder of thyroid, unspecified; K21.9 Gastro-esophageal reflux disease without esophagitis; I50.9 Heart failure, unspecified; E78.00 Pure hypercholesterolemia, unspecified; Z79.82 Long term (current) use of aspirin; Z79.899 Other long term (current) drug therapy

== ENCOUNTER → 2018-08-06 | Outpatient (CLI) | payer MEDICARE, OTHER | LOC: GMAL 14:56 | PROVIDERS: ATTEND Family Medicine | DX: I50.89 Other heart failure (principal); E11.9 Type 2 diabetes mellitus without complications ==

== ENCOUNTER → 2018-08-31 | Outpatient (CLI) | payer MEDICARE, OTHER | LOC: GMAL 14:29 | PROVIDERS: ATTEND Family Medicine | DX: E03.8 Other specified hypothyroidism (principal) ==

== ENCOUNTER → 2018-12-19 | Outpatient (CLI) | payer MEDICARE, OTHER | LOC: GMAL 12:21 | PROVIDERS: ATTEND Family Medicine | DX: D50.8 Other iron deficiency anemias (principal) ==

== ENCOUNTER → 2019-06-11 | Outpatient (CLI) | payer MEDICARE, OTHER | LOC: NC 13:23 | PROVIDERS: ATTEND Family Medicine | DX: R30.0 Dysuria (principal) ==

== ENCOUNTER → 2019-12-17 | Outpatient (CLI) | payer MEDICARE, OTHER | LOC: BFHH 14:50 | PROVIDERS: ATTEND Family Medicine | DX: I11.0 Hypertensive heart disease with heart failure (principal); I50.9 Heart failure, unspecified; D64.9 Anemia, unspecified; N39.0 Urinary tract infection, site not specified; R53.83 Other fatigue; D51.9 Vitamin B12 deficiency anemia, unspecified; E03.9 Hypothyroidism, unspecified; R39.11 Hesitancy of micturition ==

== ENCOUNTER → 2020-01-01 | Outpatient (CLI) | payer MEDICARE | LOC: BFHH 17:33 | PROVIDERS: ATTEND Family Medicine | DX: I11.0 Hypertensive heart disease with heart failure (principal); D64.9 Anemia, unspecified ==

== ENCOUNTER → 2020-01-07 | Outpatient (CLI) | payer MEDICARE | LOC: BFHH 12:39 | PROVIDERS: ATTEND Family Medicine | DX: N39.0 Urinary tract infection, site not specified (principal) ==

== ENCOUNTER 2020-01-10 15:00 | Emergency (ER) | payer MEDICARE, OTHER ==
[2020-01-10] MEDS ORDERED: SODIUM CHLORIDE 0.9% 1000ML 500 ML IVS ONE (15:35)
--- NOTE | 2020-01-10 15:38 | ED.PDOC ---
History of Present Illness - General Time Seen by Provider: 01/10/20 15:34 Additional Information: Patient is an 84-year-old female who presents to the ED with chief complaint of generalized weakness. Patient indicates that 10 to 14 days ago she was diagnosed with a UTI and took a course of antibiotics. She indicates she followed back up with the doctor who indicated that she has a continued UTI but never called in any new prescription for her. Patient presents to the ED with generalized weakness for the past 1 to 2 days. She specifically denies nausea, vomiting, fever, chills, chest pain, shortness of breath, abdominal pain, dysuria, urinary frequency. "I just feel really weak." - History of Present Illness Allergies/Adverse Reactions: Allergies NO KNOWN ALLERGY Allergy (Verified 05/15/17 18:06) Home Medications: Ambulatory Orders Citalopram Hydrobromide 20 mg PO DAILY 01/17/16 Melatonin 10 mg PO BEDTIME 01/17/16 Oxybutynin Chloride 5 mg PO BID 01/17/16 Atorvastatin Calcium [Lipitor] 10 mg PO BEDTIME 11/18/16 Carvedilol [Coreg] 25 mg PO BID 11/18/16 Diclofenac Sodium [Voltaren] 75 mg PO BEDTIME 11/18/16 Irbesartan 150 mg PO BID 11/18/16 Review of Systems - Review of Systems Constitutional: States: see HPI, weakness. Denies: chills, fever EENTM: States: no symptoms reported Respiratory: States: no symptoms reported. Denies: cough, short of breath Cardiology: States: no symptoms reported. Denies: chest pain, palpitations Gastrointestinal/Abdominal: States: no symptoms reported. Denies: abdominal pain, diarrhea, nausea, vomiting Genitourinary: States: see HPI Musculoskeletal: States: no symptoms reported Skin: States: no symptoms reported. Denies: rash Neurological: States: no symptoms reported Endocrine: States: no symptoms reported All other Systems: Reviewed and Negative Past Medical History (General) - Patient Medical History Hx Seizures: No Hx Stroke: No Hx Dementia: No Hx Asthma: No Hx of COPD: No - CPAP Hx Cardiac Disorders: Yes - Hypercholesterolemia; arrythmia Hx Congestive Heart Failure: Yes Hx Pacemaker: No Hx Hypertension: Yes Hx Thyroid Disease: Yes Hx Diabetes: No Hx Gastroesophageal Reflux: Yes Hx Renal Disease: No Hx Cancer: No Hx of HIV: No Hx Hepatitis C: No Hx MRSA: No MRSA Source:: nose - Vaccination History Hx Tetanus, Diphtheria Vaccination: No Hx Influenza Vaccination: Yes - 2018 Hx Pneumococcal Vaccination: Yes - Social History Hx Tobacco Use: No Hx Chewing Tobacco Use: No Hx Alcohol Use: No Hx Substance Use: No Hx Substance Use Treatment: No Hx Depression: No Hx Physical Abuse: No Hx Emotional Abuse: No Hx Suspected Abuse: No - Female History Patient : No Family Medical History - Family History Mother Family History: No Known Living Status: Hx Family Cancer: Yes Father Living Status: Hx Family Hypertension: Yes Hx Cardiac Disease: Yes Physical Exam - Physical Exam General Appearance: Frail, No apparent distress, Well Developed, Well Nourished Neck: supple, normal inspection Respiratory: chest non-tender, lungs clear, normal breath sounds, no respiratory distress, no accessory muscle use Cardiovascular/Chest: normal peripheral pulses, regular rate, rhythm Peripheral Pulses: radial,right: 2+, radial,left: 2+ Gastrointestinal/Abdominal: normal bowel sounds, non tender, soft, no organomegaly, no pulsatile mass Back Exam: normal inspection, no CVA tenderness Extremity: normal range of motion, non-tender, normal inspection, no pedal edema 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 Patient's UA does not show an obvious UTI and I have cultured her urine. Will not discharge with antibiotics but will await culture results. Patient sodium is a bit low at 129 and this is been addressed with IV fluids. Patient's electrolytes are otherwise unremarkable. I have offered patient hobs admission for rehydration but she declines saying that she wishes to recover at home and follow-up with her doctor and return to the ED if her symptoms worsen. Vital signs stable, patient is NAD and looks clinically well and I believe is safe for discharge with outpatient follow-up. Follow-up instructions, discharge instructions and return to ED precautions discussed with patient. Patient voices understanding and willingness to comply with instructions. All laboratory and radiographic results have been discussed with the patient, and all questions answered. Patient is happy with plan. - Results/Orders Results/Orders: 01/10/20 15:45 EKG .ONCE 01/10/20 17:50 URINE CULTURE W/COLONY COUNT Stat 01/10/20 18:33 Urine Culture Stat Laboratory Results - last 24 hr 01/10/20 01/10/20 01/10/20 15:50 15:50 15:50 WBC 5.4 RBC 4.03 L Hgb 11.9 L Hct 35.3 L MCV 87.7 MCH 29.6 MCHC 33.7 RDW 13.2 Plt Count 362 MPV 6.9 L Absolute Neuts (auto) 3.50 Absolute Lymphs (auto) 1.10 Absolute Monos (auto) 0.60 Absolute Eos (auto) 0.10 Absolute Basos (auto) 0.00 Neutrophils % 65.0 Lymphocytes % 21.2 Monocytes % 10.4 H Eosinophils % 2.7 Basophils % 0.7 Sodium 129 L Potassium 4.2 Chloride 98 L Carbon Dioxide 23 Anion Gap 12.2 BUN 20 H Creatinine 0.66 BUN/Creatinine Ratio 30.3 H Random Glucose 116 H Serum Osmolality 262.5 L Lactic Acid 1.3 Calcium 8.7 Total Bilirubin 0.4 AST 16 ALT 10 Alkaline Phosphatase 57 Troponin I Serum Total Protein 6.4 Albumin 3.5 Globulin 2.9 Albumin/Globulin Ratio 1.2 Urine Color Urine Appearance Urine pH Ur Specific [place] Urine Protein Urine Glucose (UA) Urine Ketones Urine Blood Urine Nitrite Urine Bilirubin Urine Urobilinogen Ur Leukocyte Esterase Urine RBC Urine WBC Ur Epithelial Cells Urine Bacteria 01/10/20 01/10/20 15:50 17:50 WBC RBC Hgb Hct MCV MCH MCHC RDW Plt Count MPV Absolute Neuts (auto) Absolute Lymphs (auto) Absolute Monos (auto) Absolute Eos (auto) Absolute Basos (auto) Neutrophils % Lymphocytes % Monocytes % Eosinophils % Basophils % Sodium Potassium Chloride Carbon Dioxide Anion Gap BUN Creatinine BUN/Creatinine Ratio Random Glucose Serum Osmolality Lactic Acid Calcium Total Bilirubin AST ALT Alkaline Phosphatase Troponin I < 0.02 Serum Total Protein Albumin Globulin Albumin/Globulin Ratio Urine Color Yellow Urine Appearance Clear Urine pH 6.5 Ur Specific [place] 1.010 Urine Protein Negative Urine Glucose (UA) Negative Urine Ketones Negative Urine Blood Negative Urine Nitrite Negative Urine Bilirubin Negative Urine Urobilinogen 0.2 Ur Leukocyte Esterase Small H Urine RBC 0 Urine WBC 5-10 H Ur Epithelial Cells 0-1 Urine Bacteria 0 - EKG/XRAY/CT Comments: Normal sinus rhythm, rate 61, LAD, normal QRS, normal ST segments, normal T Departure - Departure Clinical Impression: Generalized weakness, Hyponatremia Time of Disposition: 19:27 Disposition: Discharge to Home or Self Care Referrals: True Alvarez III, MD [Primary Care Provider] - 1-5 Days Home Medications: Ambulatory Orders Citalopram Hydrobromide 20 mg PO DAILY 01/17/16 Melatonin 10 mg PO BEDTIME 01/17/16 Oxybutynin Chloride 5 mg PO BID 01/17/16 Atorvastatin Calcium [Lipitor] 10 mg PO BEDTIME 11/18/16 Carvedilol [Coreg] 25 mg PO BID 11/18/16 Diclofenac Sodium [Voltaren] 75 mg PO BEDTIME 11/18/16 Irbesartan 150 mg PO BID 11/18/16
--- NOTE | 2020-01-10 16:05 | RAD ---
EXAM: XR Chest, 1 View CLINICAL HISTORY: The patient is 84 years old and is Female; weakness TECHNIQUE: Single view of the chest. COMPARISON: July 04, 2018. FINDINGS: Lungs: Unremarkable. No consolidation. Pleural space: Unremarkable. No pneumothorax. Heart: Unremarkable. No cardiomegaly. Mediastinum: Unremarkable. Bones/joints: No acute fracture identified. Upper abdomen: No free air in the visualized upper abdomen. IMPRESSION: No acute cardiopulmonary process identified. Electronically signed by: Perri Lopez MD 01/10/2020 4:04 PM CDT
[2020-01-10 17:49] VITALS: TEMP 98.4; O2SAT 95
[2020-01-10 18:36] VITALS: BP 177/70
== END 2020-01-10 19:40 | disposition home or self-care (01) ==
LOC: ER 15:00
DX: R53.1 Weakness (principal); E87.1 Hypo-osmolality and hyponatremia; I11.0 Hypertensive heart disease with heart failure; I50.9 Heart failure, unspecified; E86.9 Volume depletion, unspecified
CPT/HCPCS: 36415; 71045; 80053; 81001; 83605; 84484; 85025; 87086; 93005; J7030

== ENCOUNTER → 2020-01-17 | Outpatient (CLI) | payer MEDICARE | LOC: BFHH 15:44 | PROVIDERS: ATTEND Family Medicine | DX: E78.1 Pure hyperglyceridemia (principal); D51.9 Vitamin B12 deficiency anemia, unspecified; I11.0 Hypertensive heart disease with heart failure ==

== ENCOUNTER → 2020-01-24 | Outpatient (CLI) | payer MEDICARE | LOC: GMAL 11:37 | PROVIDERS: ATTEND Family Medicine | DX: E87.1 Hypo-osmolality and hyponatremia (principal); I10 Essential (primary) hypertension; I50.9 Heart failure, unspecified ==

== ENCOUNTER → 2020-02-07 | Outpatient (CLI) | payer MEDICARE, OTHER | LOC: BFHH 12:52 | PROVIDERS: ATTEND Family Medicine | DX: E87.1 Hypo-osmolality and hyponatremia (principal); I10 Essential (primary) hypertension; I50.9 Heart failure, unspecified; R53.83 Other fatigue ==

== ENCOUNTER → 2020-03-23 | Outpatient (CLI) | payer MEDICARE, OTHER | LOC: BFHH 15:07 | PROVIDERS: ATTEND Family Medicine | DX: E55.9 Vitamin D deficiency, unspecified (principal); D64.9 Anemia, unspecified; R53.83 Other fatigue ==

== ENCOUNTER → 2020-05-14 | Outpatient (CLI) | payer MEDICARE, OTHER | LOC: GMAL 14:22 | PROVIDERS: ATTEND Family Medicine | DX: N39.0 Urinary tract infection, site not specified (principal); I50.9 Heart failure, unspecified ==

== ENCOUNTER → 2020-05-29 | Outpatient (CLI) | payer MEDICARE, OTHER | LOC: GMAL 10:46 | PROVIDERS: ATTEND Family Medicine | DX: R30.0 Dysuria (principal) ==

== ENCOUNTER 2020-06-08 11:04 | Inpatient (IN) | payer MEDICARE, OTHER ==
[2020-06-08] MEDS ORDERED: SODIUM CHLORIDE 0.9% 1000ML 1,000 ML IVS ONE (11:27)
--- NOTE | 2020-06-08 12:27 | RAD ---
EXAM DESCRIPTION: XR CHEST 2 VIEWS CLINICAL HISTORY: CHEST PAIN COMPARISON: 01/10/2020 TECHNIQUE: PA/lateral FINDINGS: Heart size is normal. Mildly tortuous atherosclerotic aorta. The lungs are mildly hyperinflated but otherwise clear. Blunted posterior costophrenic angle probably pleural thickening. Retrocardiac left lower lobe scar unchanged. No pneumothorax. No acute bony abnormality. IMPRESSION: No acute cardiopulmonary process. Electronically signed by: Gera Sanchez MD 06/08/2020 12:26 PM [facility]
--- NOTE | 2020-06-08 12:31 | ED.PDOC ---
History of Present Illness - General Chief Complaint: Allergic Reaction Stated Complaint: possible allergic reaction Time Seen by Provider: 06/08/20 11:26 Source: patient - History of Present Illness Initial Comments: PATIENT PRESENTS WITH DIFFUSE MYALGIAS, EXTREEM GENERALIZED WEAKNESS AND FATIGUE, SHE REPORTS SHE IS BEING TX FOR A UTI AND IS CIPRO. PATIENT FEELS THAT SHE IS HAVING A REACTION TO THE CIPRO Improving Factors: nothing Worsening Factors: nothing Associated Symptoms: loss of appetite, weakness Allergies/Adverse Reactions: Allergies Ciprofloxacin [From Cipro] Allergy (Verified 06/08/20 11:31) Home Medications: Ambulatory Orders Citalopram Hydrobromide 20 mg PO DAILY 01/17/16 Melatonin 10 mg PO BEDTIME 01/17/16 Oxybutynin Chloride 5 mg PO BID 01/17/16 Atorvastatin Calcium [Lipitor] 10 mg PO BEDTIME 11/18/16 Carvedilol [Coreg] 25 mg PO BID 11/18/16 Diclofenac Sodium [Voltaren] 75 mg PO BEDTIME 11/18/16 Irbesartan 150 mg PO BID 11/18/16 Review of Systems - Review of Systems Constitutional: States: malaise, weakness EENTM: States: no symptoms reported Respiratory: States: no symptoms reported Cardiology: States: no symptoms reported Gastrointestinal/Abdominal: States: no symptoms reported Genitourinary: States: no symptoms reported Musculoskeletal: States: joint pain, muscle pain, muscle stiffness Skin: States: no symptoms reported Neurological: States: no symptoms reported Endocrine: States: no symptoms reported Past Medical History (General) - Patient Medical History Hx Seizures: No Hx Stroke: No Hx Dementia: No Hx Asthma: No Hx of COPD: No - CPAP Hx Cardiac Disorders: Yes - Hypercholesterolemia; arrythmia Hx Congestive Heart Failure: Yes Hx Pacemaker: No Hx Hypertension: Yes Hx Thyroid Disease: Yes Hx Diabetes: No Hx Gastroesophageal Reflux: Yes Hx Renal Disease: No Hx Cancer: No Hx of HIV: No Hx Hepatitis C: No Hx MRSA: No MRSA Source:: nose Surgical History: appendectomy, tonsillectomy - Vaccination History Hx Tetanus, Diphtheria Vaccination: No Hx Influenza Vaccination: Yes - 2018 Hx Pneumococcal Vaccination: Yes - Social History Hx Tobacco Use: No Hx Chewing Tobacco Use: No Hx Alcohol Use: No Hx Substance Use: No Hx Substance Use Treatment: No Hx Depression: No Hx Physical Abuse: No Hx Emotional Abuse: No Hx Suspected Abuse: No - Activities of Daily Living Hospice Agency (if applicable):: None - Female History Patient is a Female of Child Bearing Age (10 -59 yrs old): No Patient : No Family Medical History - Family History Mother Family History: No Known Living Status: Hx Family Cancer: Yes Father Living Status: Hx Family Hypertension: Yes Hx Cardiac Disease: Yes Progress - Progress Progress: 06/08/20 13:27 DISCUSSED WITH DONNA, WILL ADMIT FOR HYPONATREMIA TO CORRECT. Departure - Departure Clinical Impression: Hyponatremia Time of Disposition: 13:26 Disposition: Admit Patient Condition: Good Departure Forms: ED Discharge - Pt. Copy, Patient Portal Self Enrollment Instructions: DI for Allergic Rhinitis Referrals: True Alvarez III, MD [Primary Care Provider] - 1-2 Weeks Home Medications: Ambulatory Orders Citalopram Hydrobromide 20 mg PO DAILY 01/17/16 Melatonin 10 mg PO BEDTIME 01/17/16 Oxybutynin Chloride 5 mg PO BID 01/17/16 Atorvastatin Calcium [Lipitor] 10 mg PO BEDTIME 11/18/16 Carvedilol [Coreg] 25 mg PO BID 11/18/16 Diclofenac Sodium [Voltaren] 75 mg PO BEDTIME 11/18/16 Irbesartan 150 mg PO BID 11/18/16 Decision To Admit - Decistion To Admit Decision to Admit Date: 06/08/20 Decision to Admit Time: 13:26
--- NOTE | 2020-06-08 14:36 | HP ---
SUPERVISING PHYSICIAN: Angel Wellington MD CHIEF COMPLAINT: Generalized weakness. HISTORY OF PRESENT ILLNESS: Ms. Solis is an 84 year-old female patient who presented to the Emergency Room with diffuse myalgias and generalized weakness and fatigue. She reported she has been on Ciprofloxacin for a urinary tract infection since May 29. She felt like she might be having a reaction to the Cipro because she has felt so bad. Labs in the Emergency Room did show she was hyponatremic with a sodium of 121 and serum osmolality of 2346. White count was normal, she didn't have a left shift. Vital signs showed she was stable with temperature of 97.4, pulse 56, blood pressure 130/54, respirations 18, oxygen saturation 94% on room air. Review of past records in the clinic showed she did grow an E. coli and according to that sensitivity she was resistant to Cipro and there was a note that she was supposed to be on Invanz 1 gram IV daily. Urinalysis was pending at time of admission. The patient looked to be stable and not in any degree of sepsis but she still reports that she feels like she has a urinary tract infection. She is going to be admitted now for further investigation and failure of treatment of urinary tract infection along with hyponatremia resulting in generalized weakness. She is admitted in stable condition. PAST MEDICAL HISTORY: 1. Hypertension. 2. Sleep apnea. 3. Degenerative disk disease. 4. Spinal stenosis. 5. Osteopenia. 6. Peripheral neuropathies. PAST SURGICAL HISTORY: 1. Appendectomy. 2. Total knee replacement in 2002. 3. Tonsillectomy and adenoidectomy as a child. 4. L4 and 5 PERNELL in 2002 and 2014. 5. Laparoscopic cholecystectomy in 2013. 6. Right hemiarthroplasty in 2014. 7. Left hemiarthroplasty in 2016. Last echocardiogram per review of chart shows to be in 2018 and shows an ejection fraction of 60% with a grade 2 diastolic dysfunction. CURRENT MEDICATIONS: 1. Oxybutynin 5 mg b.i.d. 2. Melatonin 10 mg daily. 3. Irbesartan 150 mg daily. 4. Ultram 75 mg daily. 5. Citalopram 20 mg daily. 6. Coreg 25 mg b.i.d. 7. Lipitor 10 mg daily. ALLERGIES: CIPROFLOXACIN, ZETA, ARTHRITIC, BYSTOLIC, HYDROCHLOROTHIAZIDE, LIPITOR, LISINOPRIL, ROBINUL, VESICARE. FAMILY HISTORY: Father at age 82 secondary to a myocardial infarction. Mother at age 80 secondary age and arthritis. She has 2 brothers, one due to cardiovascular disease and obesity, another one at age 94. She had one sister at age 98 had hypertension and a CVA. SOCIAL HISTORY: The patient is a retired homemaker, she is . She has 2 children. She has never smoked, does not drink alcohol or use illicit drugs. REVIEW OF SYSTEMS: CONSTITUTIONAL: Denies fever, chills, reports general malaise as noted in history of present illness. No unintentional weight loss or weight gain. HEENT: Denies headaches. vision changes, sore throat. nasal congestion, earaches. CHEST: Denies shortness of breath, wheezing or coughing. HEART: Denies chest pain, palpitations, tachycardia or syncopal episodes. ABDOMEN: Denies nausea, vomiting, diarrhea or constipation, abdominal pain. GENITOURINARY: Does note she has had some dysuria as noted in history of present illness. Denies nocturia or polyuria. SKIN: Denies lesions, rashes, moles or unexplained changes. NEUROLOGIC: As noted in history of present illness, generalized weakness with myalgias. Denies ataxia, seizures, paresthesias or other focal deficits. HEMATOLOGICAL: Denies unexplained bleeding, easy bruising or transfusion reactions. PHYSICAL EXAMINATION: VITAL SIGNS: Temperature 97.4, pulse 56, blood pressure 130/54, respirations 18, oxygen saturation 94% on room air. GENERAL: The patient looks to be resting comfortably. She is a little anxious but does not look to be in any distress. HEENT: Tympanic membranes are clear bilaterally. Oropharynx is pink, moist without lesions. NECK: Supple, non-tender, full range of motion, no jugular venous distention. CHEST: Lung sounds were clear to auscultation bilaterally without rhonchi, rales, or wheezes. CARDIOVASCULAR: Regular rate and rhythm without appreciable murmurs, rubs, or gallops. ABDOMEN: Soft, non-tender, positive bowel sounds. EXTREMITIES: Without cyanosis, clubbing, or edema NEUROLOGIC: She is alert and oriented x 3. LABORATORY: White count normal at 5,200, differential showed to be without a left shift. Chemistries shows sodium 121, serum osmolality 246, creatinine 0.96, liver functions within normal limits. Urinalysis pending. Covid swab was negative. RADIOLOGY: Chest x-ray per radiology interpretation showed no acute cardiopulmonary process. ASSESSMENT: 1. Hyponatremia, etiology uncertain. 2. Diffuse weakness likely secondary to #1. 3. History of recent urinary tract infection treated Cipro with reported allergy to Cipro with culture on 05/29/20 showed E. coli resistant to Cipro with repeat urinalysis pending. 4. Hypertension. 5. Sleep apnea. 6. Degenerative disk disease. 7. Osteopenia. 8. Peripheral neuropathy. PLAN: Ms. Solis is going to be admitted for treatment of underlying weakness with hyponatremia. We will give her a little bit of sodium infusion with fluid restrictions orally, less than 1500 cc per day. We will recheck her labs in the morning as well as recheck a urinalysis to make sure she might have failed outpatient treatment of her underlying urinary tract infection. Will go ahead and get a physical examination evaluation due to her ongoing weakness. I would anticipate her length of stay to be at least 2 to 3 days. We will go ahead and start her on Lovenox per protocol. She will be on Protonix for gastric protection. Until we can transition patient to outpatient management, we will continue to monitor and treat as needed. [facility][id number] [facility]
[2020-06-08] MEDS ORDERED: SODIUM CHLORIDE 0.9% (FLUSH) 10 ML SYG IV PRN (16:49)
[2020-06-08] MEDS ORDERED: ONDANSETRON INJ 4 MG/2 ML VIAL IV PRN (16:49)
[2020-06-08] MEDS ORDERED: ACETAMINOPHEN 325 MG TAB PO PRN (16:49)
[2020-06-08] MEDS ORDERED: IV SET AND CAP CHANGE INJ INJ SCH (17:00)
[2020-06-08] MEDS: KCL 20 MEQ/NS 1,000 ML IVS PRN (18:01)
[2020-06-08] MEDS ORDERED: ENOXAPARIN SODIUM 40 MG/0.4 ML SYG SUBCU ONE (19:39)
[2020-06-08] MEDS: ENOXAPARIN SODIUM 40 MG/0.4 ML SYG SUBCU SCH (19:57)
[2020-06-09] MEDS: KCL 20 MEQ/NS 1,000 ML IVS PRN ×2 (05:42→19:59)
[2020-06-09] MEDS ORDERED: ERTAPENEM 1 GM VIAL ONE (09:07)
[2020-06-09] MEDS ORDERED: SODIUM CHLORIDE 0.9% 50ML 50 ML ONE (09:07)
[2020-06-09] MEDS: ERTAPENEM 1 GM in SODIUM CHL 0.9% 50ML MIN-BAG+ 50 ML IVPB SCH (09:13)
--- NOTE | 2020-06-09 11:45 | PN ---
SUPERVISING PHYSICIAN: Angel Wellington MD DATE: 06/09/20 SUBJECTIVE: The patient feels better this morning and feels like she has a little bit more energy than she did yesterday. OBJECTIVE: VITAL SIGNS: Blood pressure 106/54, heart rate 75, respiratory rate 16, temperature 98.3, oxygen saturation 95%. GENERAL: Ms. Solis is an 84-year-old female in no active distress. NEUROLOGIC: The patient is alert. LUNGS: Clear to auscultation bilaterally. CARDIOVASCULAR: Regular rate and rhythm. Normal S1, S2. ABDOMEN: Soft. Positive bowel sounds. EXTREMITIES: Lower extremities with no edema. LABORATORY: Sodium is better this morning at 128 from 121. Other labs are unremarkable. ASSESSMENT: 1. Hyponatremia, improved. 2. Diffuse weakness likely secondary to hyponatremia. 3. Recent multi-drug resistant Escherichia coli urinary tract infection that was treated Cipro as an outpatient, but had resistance to Cipro. 4. Hypertension. 5. Sleep apnea. 6. Degenerative disc disease. 7. Osteopenia. 8. Peripheral neuropathy. PLAN: Sodium is better. We will continue current treatment. I am going to start her on Invanz as the patient was supposed to be started on that for 7 days, but it does not appear that was done. A repeat urinalysis is in progress at this time. Overall, clinically, she seems to be improved, though. [facility][id number] [facility]
[2020-06-09] MEDS: ENOXAPARIN SODIUM 40 MG/0.4 ML SYG SUBCU SCH (20:00)
[2020-06-10 04:51] VITALS: TEMP 98.4
[2020-06-10] MEDS ORDERED: CARVEDILOL 12.5 MG TAB ONE (08:59)
[2020-06-10] MEDS ORDERED: CITALOPRAM HBR 20 MG TAB ONE (08:59)
[2020-06-10] MEDS ORDERED: IRBESARTAN 150 MG PO SCH (09:00)
[2020-06-10] MEDS ORDERED: OXYBUTYNIN CL 5 MG TAB PO SCH (09:00)
[2020-06-10] MEDS ORDERED: CARVEDILOL 12.5 MG TAB PO SCH (09:00)
[2020-06-10] MEDS ORDERED: CITALOPRAM HBR 20 MG TAB PO SCH (09:00)
[2020-06-10] MEDS ORDERED: LOSARTAN POTASSIUM 25 MG TAB PO SCH (09:45)
[2020-06-10] MEDS: ERTAPENEM 1 GM in SODIUM CHL 0.9% 50ML MIN-BAG+ 50 ML IVPB SCH (09:55)
[2020-06-10 11:15] VITALS: BP 148/78
[2020-06-10] MEDS ORDERED: DICLOFENAC SODIUM 75 MG TAB PO SCH (21:00)
[2020-06-10] MEDS ORDERED: MELATONIN 3 MG TAB PO SCH (21:00)
[2020-06-10] MEDS ORDERED: ATORVASTATIN 10 MG TAB PO SCH (21:00)
--- NOTE | 2020-06-11 08:01 | DS ---
SUPERVISING PHYSICIAN: Angel Wellington MD ADMISSION DIAGNOSIS: 1. Hyponatremia. 2. Diffuse weakness, secondary to #1. 3. Recent urinary tract infection treated Cipro with reported allergy to Cipro with culture on 05/29/20 showed Escherichia coli. 4. Hypertension. 5. Sleep apnea. 6. Degenerative disc disease. 7. Osteopenia. 8. Peripheral neuropathy. DISCHARGE DIAGNOSIS: 1. Hyponatremia. 2. Diffuse weakness, secondary to #1. 3. Recent urinary tract infection treated Cipro with reported allergy to Cipro with culture on 05/29/20 showed Escherichia coli. 4. Hypertension. 5. Sleep apnea. 6. Degenerative disc disease. 7. Osteopenia. 8. Peripheral neuropathy. HOSPITAL COURSE: This is an 84-year-old female who was admitted to the hospital on 06/08/20 basically she presented to the Emergency Room with diffuse myalgias, generalized weakness and fatigue. Apparently on 05/29/20, she was seen for a urinary tract infection. She was placed on Cipro, but felt like she was having a reaction to the Cipro because she felt so bad. In the ER, she was found to have a sodium of 121, low osmolality as well. The urine culture from the primary care physician's office showed a multi-drug resistant E. coli which was actually resistant to Cipro. There was a note on the sensitivities that she would be started on Invanz, however, she was not started on that due to her feeling bad and coming to the ER. On admission, she was placed on normal saline and a repeat urinalysis was done. The repeat urinalysis was not really too significant for urinary tract infection, but I did discuss with her primary care physician who wanted her to get the Invanz due to her recurrent urinary tract infections. I also gave her 2 doses while she was in the hospital. Her sodium improved to 129 by discharge, she was taking p.o. quite well and weakness was improved. We did get a physical therapy evaluation who initially suggested she have inpatient rehab, but the patient declined and agreed to home health. Therefore, [facility] was consulted and will pick up and delivery driver her care when she is discharged and utilize physical therapy aspect as well. She was discharged in stable condition today with no complaints. She is going to have 5 more days of Invanz infusions daily and her family is bringing her for that. She can followup with Dr. Alvarez as an outpatient. [facility][id number] [facility]
[2020-06-11 10:11] VITALS: O2SAT 97
== END 2020-06-10 14:00 | disposition home health service (06) | DRG 641 ==
LOC: ER 11:04 → OBSVTOIN 14:31 → MS 14:31
PROVIDERS: ADMIT Nurse Practitioner Family; ATTEND Nurse Practitioner
DX: E87.1 Hypo-osmolality and hyponatremia (principal); Z16.24 Resistance to multiple antibiotics; B96.20 Unspecified Escherichia coli [E. coli] as the cause of diseases classified elsewhere; I10 Essential (primary) hypertension; G47.30 Sleep apnea, unspecified; M85.80 Other specified disorders of bone density and structure, unspecified site; G62.9 Polyneuropathy, unspecified; E78.00 Pure hypercholesterolemia, unspecified; K21.9 Gastro-esophageal reflux disease without esophagitis; Z87.440 Personal history of urinary (tract) infections; Z96.659 Presence of unspecified artificial knee joint; Z79.1 Long term (current) use of non-steroidal anti-inflammatories (NSAID); Z88.1 Allergy status to other antibiotic agents; Z88.8 Allergy status to other drugs, medicaments and biological substances

== ENCOUNTER → 2020-06-17 | Outpatient (CLI) | payer MEDICARE, OTHER | LOC: BFHH 13:56 | PROVIDERS: ATTEND Family Medicine | DX: I10 Essential (primary) hypertension (principal); N39.0 Urinary tract infection, site not specified; E87.1 Hypo-osmolality and hyponatremia; E03.9 Hypothyroidism, unspecified; I50.30 Unspecified diastolic (congestive) heart failure; K58.9 Irritable bowel syndrome, unspecified; D51.3 Other dietary vitamin B12 deficiency anemia ==

== ENCOUNTER → 2020-07-06 | Outpatient (CLI) | payer MEDICARE, OTHER | LOC: BFHH 13:42 | PROVIDERS: ATTEND Family Medicine | DX: E87.1 Hypo-osmolality and hyponatremia (principal); I11.0 Hypertensive heart disease with heart failure; I50.30 Unspecified diastolic (congestive) heart failure ==

== ENCOUNTER → 2020-07-24 | Outpatient (CLI) | payer MEDICARE, OTHER | LOC: BFHH 10:52 | PROVIDERS: ATTEND Family Medicine | DX: I11.0 Hypertensive heart disease with heart failure (principal); I50.30 Unspecified diastolic (congestive) heart failure; E87.1 Hypo-osmolality and hyponatremia; D63.8 Anemia in other chronic diseases classified elsewhere ==